=== PATIENT | male | born 1955 | race Caucasian/White ===

== ENCOUNTER 2018-07-29 11:21 | Inpatient (IN) | payer MEDICARE, OTHER ==
[~2018-07-29] VITALS: Ht 182.9 cm; Wt 90.3 kg
[2018-07-29] MEDS ORDERED: CLOP75TA15 PO (11:53)
[2018-07-29 12:03] LABS: BASOPHILS # (AUTO) 0.1 X10'3 (0-0.2); BASOPHILS % (AUTO) 0.9 % (0-1); EOSINOPHILS # (AUTO) 0.1 X10'3 (0-0.9); EOSINOPHILS % (AUTO) 1.2 % (0-6); HEMATOCRIT 49.2 % (42.0-52.0); HEMOGLOBIN 17.3 g/dl (14.0-17.9); LYMPHOCYTES # (AUTO) 1.3 X10'3 (1.1-4.8); MEAN CORPUSCULAR HGB CONC 35.2 g/dL (33.0-36.5); MEAN CORPUSCULAR VOLUME 88.1 FL (78-98); MEAN PLATELET VOLUME 7.1 FL (7.4-10.4); MONOCYTES # (AUTO) 0.4 X10'3 (0-0.9); MONOCYTES % (AUTO) 5.3 % (2-12); NEUTROPHILS # (AUTO) 6.2 X10'3 (1.8-7.7); NEUTROPHILS % (AUTO) 76.6 % (42-75); PLATELET COUNT 235 X10'3 (140-440); RED BLOOD COUNT 5.59 X10'6 (4.70-6.10); RED CELL DISTRIBUTION WIDTH 13.5 % (11.5-14.5)
[2018-07-29 12:15] LABS: ALANINE AMINOTRANSFERASE 47 U/L (12-78); ALBUMIN 3.7 G/DL (3.4-5.0); ALBUMIN/GLOBULIN RATIO 0.7 (1.1-1.5); ALKALINE PHOSPHATASE 128 IU/L (46-116); ANION GAP 5 (8-16); ASPARTATE AMINO TRANSFERASE 26 U/L (10-37); BILIRUBIN,TOTAL 0.5 MG/DL (0.1-1.0); BLOOD UREA NITROGEN 16 MG/DL (7-18); BUN/CREATININE RATIO 13.7 (5.4-32.0); CALCIUM 9.2 MG/DL (8.5-10.1); CHLORIDE 102 MMOL/L (99-107); CREATININE 1.17 MG/DL (0.60-1.10); GLUCOSE 103 MG/DL (70-104); SODIUM 137 MMOL/L (135-145); TOTAL CARBON DIOXIDE 30.3 MMOL/L (24-32); TOTAL PROTEIN 8.7 G/DL (6.4-8.2); eGFR 63 ML/MIN
[2018-07-29 12:16] LABS: PARTIAL THROMBOPLASTIN TIME 28 SECONDS (22-32)
[2018-07-29] MEDS ORDERED: ASPI-1140 PO (12:41)
[2018-07-29] MEDS ORDERED: nitroGLYCERIN 0.4mg SUBLingual tab SL PRN (12:55)
[2018-07-29] MEDS ORDERED: magnesium hydroxide 30ml (MOM) UD suspension PO PRN (12:55)
[2018-07-29] MEDS ORDERED: bisacodyl 10mg suppository rectal RC PRN (12:55)
[2018-07-29] MEDS ORDERED: aminophylline 250mg/10ml inj. IV PRN (12:55)
[2018-07-29] MEDS ORDERED: potassium Cl 40MEQ/NS 500ml 500 ML IV PRN (12:55)
[2018-07-29] MEDS ORDERED: acetaminophen 325mg tablet PO PRN ×2 (12:55)
[2018-07-29] MEDS ORDERED: morphine 2 MG/ML inj. syringe IV PRN ×2 (12:55)
[2018-07-29] MEDS ORDERED: mag hydrox/Alum hydrox/simeth 30ml oral suspension PO PRN (12:55)
[2018-07-29] MEDS ORDERED: regadenoson 0.4mg/5ml syringe IV ONE (12:55)
[2018-07-29] MEDS ORDERED: HYDROcodone/acetaminophen 10/325mg tab PO PRN (12:55)
[2018-07-29] MEDS ORDERED: potassium Cl 20 mEq SR tablet PO PRN ×2 (12:55)
[2018-07-29] MEDS: K and/or MAG REPLACEMENT MC SCH (12:55)
[2018-07-29] MEDS ORDERED: potassium CL 10mEq/100ml bag 100 ML IV PRN (12:55)
[2018-07-29] MEDS ORDERED: metoprolol tartrate 1mg/ml inj IV PRN (12:55)
[2018-07-29] MEDS ORDERED: ondansetron/PF 4mg/2ml inj IV PRN (12:55)
[2018-07-29] MEDS ORDERED: magnesium 4gm in 100ml NS 100 ML IV PRN (12:55)
[2018-07-29] MEDS ORDERED: magnesium 2GM in 50ml NS 50 ML IV PRN (12:55)
[2018-07-29] MEDS ORDERED: magnesium Cl slow-release 64mg tablet PO PRN (12:55)
[2018-07-29] MEDS ORDERED: diphenhydrAMINE 25mg capsule PO PRN (12:55)
[2018-07-29] MEDS ORDERED: heparin 10,000 units/1 ML INJ IV ONE (13:00)
[2018-07-29 13:06] LABS: CLARITY,URINE CLEAR (Clear); COLOR,URINE YELLOW (Yellow); GLUCOSE, URINE NEGATIVE (Neg); KETONES,URINE NEGATIVE (Neg); LEUKOCYTE ESTERASE ,URINE NEGATIVE (Neg); NITRITES, URINE NEGATIVE (Neg); OCCULT BLOOD,URINE MODERATE (Neg); PH,URINE 5.5 (4.8-8.0); PROTEIN,URINE NEGATIVE (Neg); UROBILINOGEN,URINE 0.2 E.U/dL (0.2-1.0)
[2018-07-29 13:07] LABS: UA COLLECTION TYPE CLN CATCH MIDSTREAM
[2018-07-29] MEDS: normal saline 1000ml 1,000 ML IV SCH ×3 (13:13→23:00)
[2018-07-29 13:14] LABS: MUCUS STRANDS MANY /LPF (Neg); SQUAMOUS EPITHELIAL CELL,UR NONE SEEN /LPF (FEW)
[2018-07-29 13:15] LABS: HYALINE CASTS 0-3 /LPF (NEGATIVE)
[2018-07-29 13:16] LABS: WBC,URINE 0-4 /HPF (0-4)
[2018-07-29 13:17] LABS: BACTERIA,URINE NONE SEEN /HPF (Neg)
[2018-07-29] MEDS: heparin 25,000 UNIT/250ml bag 250 ML IV SCH ×2 (13:30→22:19)
--- NOTE | 2018-07-29 13:36 | NUR ---
GENE FROM [facility] STATES THEY WILL NOT BE ABLE TO DO THE STRESS TEST TODAY BUT WILL DO IT TOMORROW.
[2018-07-29 13:40] LABS: HEMOGLOBIN A1C 5.6 % (4.5-6.2)
[2018-07-29] MEDS ORDERED: pneumococcal 23-VAL P-sac vacc 25 mcg/0.5ml vial IMVAC ONE (14:00)
--- NOTE | 2018-07-29 15:29 | NUR ---
ECHO AT BEDSIDE
[2018-07-29 16:40] LABS: URINE AMPHETAMINE SCREEN NEGATIVE (Neg); URINE BARBITUATE SCREEN NEGATIVE (Neg); URINE BENZODIAZEPINES SCREEN NEGATIVE (Neg); URINE CANNABINOID SCREEN POSITIVE (Neg); URINE COCAINE SCREEN NEGATIVE (Neg); URINE METHADONE SCREEN NEGATIVE (Neg); URINE OPIATE SCREEN NEGATIVE (Neg); URINE PHENCYCLIDINE SCREEN NEGATIVE (Neg)
--- NOTE | 2018-07-29 16:40 | NUR ---
TIMOTHY ROSARIO PHONE NUMBER (QVUT) [phone] CALL WITH ANY QUESTIONS OR NEW INFO.
--- NOTE | 2018-07-29 16:52 | NUR ---
Report received from ED RN, Nicci.
[2018-07-29] MEDS: amLODIPine 5mg tablet PO SCH (16:56)
--- NOTE | 2018-07-29 17:20 | NUR ---
Pt arrived to room 349A from ED
[2018-07-29 17:25] VITALS: BP 173/123
--- NOTE | 2018-07-29 18:50 | NUR ---
Problems reprioritized. Patient report given, questions answered & plan of care reviewed with IRMA Edouard.
--- NOTE | 2018-07-29 19:21 | NUR ---
Patient in room LAST 349. I have received report from Brittanie SOLIS and had the opportunity to ask questions and assume patient care.
[2018-07-29 20:00] VITALS: BP 143/86
[2018-07-29 20:44] LABS: PARTIAL THROMBOPLASTIN TIME 27 SECONDS (22-32)
[2018-07-29] MEDS ORDERED: temazepam 15mg capsule PO PRN (21:00)
[2018-07-29] MEDS: heparin 10,000 units/1 ML INJ IV PRN (22:16)
[2018-07-30] VITALS (18 sets, daily range): BP systolic 132–155; BP diastolic 73–102
[2018-07-30 04:47] LABS: BASOPHILS # (AUTO) 0.1 X10'3 (0-0.2); BASOPHILS % (AUTO) 0.8 % (0-1); EOSINOPHILS # (AUTO) 0.2 X10'3 (0-0.9); EOSINOPHILS % (AUTO) 2.7 % (0-6); HEMATOCRIT 44.1 % (42.0-52.0); HEMOGLOBIN 15.5 g/dl (14.0-17.9); LYMPHOCYTES # (AUTO) 1.7 X10'3 (1.1-4.8); MEAN CORPUSCULAR HGB CONC 35.1 g/dL (33.0-36.5); MEAN CORPUSCULAR VOLUME 88.2 FL (78-98); MEAN PLATELET VOLUME 7.2 FL (7.4-10.4); MONOCYTES # (AUTO) 0.5 X10'3 (0-0.9); MONOCYTES % (AUTO) 6.8 % (2-12); NEUTROPHILS # (AUTO) 4.9 X10'3 (1.8-7.7); NEUTROPHILS % (AUTO) 66.7 % (42-75); PLATELET COUNT 184 X10'3 (140-440); RED CELL DISTRIBUTION WIDTH 13.7 % (11.5-14.5); WHITE BLOOD COUNT 7.3 X10'3 (4.5-11.0)
[2018-07-30 05:07] LABS: ALANINE AMINOTRANSFERASE 45 U/L (12-78); ALBUMIN 2.9 G/DL (3.4-5.0); ALBUMIN/GLOBULIN RATIO 0.7 (1.1-1.5); ALKALINE PHOSPHATASE 103 IU/L (46-116); ANION GAP 6 (8-16); ASPARTATE AMINO TRANSFERASE 27 U/L (10-37); BILIRUBIN,TOTAL 0.7 MG/DL (0.1-1.0); BLOOD UREA NITROGEN 14 MG/DL (7-18); BUN/CREATININE RATIO 13.9 (5.4-32.0); CALCIUM 8.2 MG/DL (8.5-10.1); CHLORIDE 106 MMOL/L (99-107); CHOLESTEROL 136 MG/DL (0-200); CREATININE 1.01 MG/DL (0.60-1.10); GLUCOSE 84 MG/DL (70-104); HDL CHOLESTEROL 27 MG/DL (35-60); LDL CHOLESTEROL 96 MG/DL (50-100); MAGNESIUM 1.7 MG/DL (1.5-2.4); PHOSPHORUS 2.8 MG/DL (2.3-4.5); POTASSIUM 3.9 MMOL/L (3.5-5.1); SODIUM 137 MMOL/L (135-145); TOTAL CARBON DIOXIDE 24.9 MMOL/L (24-32); TRIGLYCERIDES 132 MG/DL (20-135); eGFR 74 ML/MIN
[2018-07-30] MEDS: heparin 10,000 units/1 ML INJ IV PRN ×2 (05:25→12:35)
[2018-07-30] MEDS: heparin 25,000 UNIT/250ml bag 250 ML IV SCH (05:29)
--- NOTE | 2018-07-30 06:44 | NUR ---
Problems reprioritized. Patient report given, questions answered & plan of care reviewed with Charo SOILS.
--- NOTE | 2018-07-30 07:44 | NUR ---
Spoke with RN completing Lexiscan. She recommends holding Amlodipine for Lexiscan. Will hold at this time and discuss/clarify with MD during rounds.
[2018-07-30] MEDS: K and/or MAG REPLACEMENT MC SCH (07:46)
[2018-07-30] MEDS ORDERED: aminophylline inj. 10 ML IV ONE (09:37)
[2018-07-30] MEDS ORDERED: regadenoson 0.4mg/5ml syringe IV ONE (09:37)
[2018-07-30] MEDS ORDERED: iohexol 300mg/ml 100ml inj. ONE (09:49)
[2018-07-30] MEDS ORDERED: LIDOcaine 1%/PF 5ML 10 MG/ML VIAL ONE (09:49)
[2018-07-30] MEDS ORDERED: fentaNYL/PF 50MCG/1 ML 2ML syringe IV PRN ×2 (10:20→13:20)
[2018-07-30] MEDS ORDERED: midazolam 2 mg/2 ml injection IV PRN ×2 (10:20→13:20)
[2018-07-30] MEDS ORDERED: LIDOcaine 1%/PF 5ML 10 MG/ML VIAL SQ ONE ×2 (10:20→13:20)
[2018-07-30] MEDS ORDERED: heparin 1,000 UNITS/NS 500ml 500 ML ICATH ONE ×2 (10:20→13:20)
[2018-07-30] MEDS: amLODIPine 5mg tablet PO SCH (11:39)
--- NOTE | 2018-07-30 13:13 | NUR ---
PAGER ID: [phone] MESSAGE: [id number] Jason Montoya Did you want the serial trops you mentioned in your H&P? I can't find any in the orders. Charo SOLIS [phone]
[2018-07-30] MEDS ORDERED: normal saline 1000ml 1,000 ML IV SCH (13:18)
[2018-07-30] MEDS ORDERED: midazolam 2 mg/2 ml injection ONE (13:47)
[2018-07-30] MEDS ORDERED: fentaNYL/PF 50MCG/1 ML 2ML syringe ONE ×2 (13:47→14:30)
[2018-07-30] MEDS ORDERED: heparin 1,000 UNITS/NS 500ml 500 ML ONE (13:47)
--- NOTE | 2018-07-30 14:20 | NUR ---
Attempted to clarify when Troponin would need to be drawn or if that gets completed in IR or not. Spoke to Glenn SOLIS who told me "I got to go." and hung up. Will attempt to clarify at a later time.
[2018-07-30] MEDS: normal saline 1000ml 1,000 ML IV SCH (15:49)
--- NOTE | 2018-07-30 18:48 | NUR ---
Gave report to Silke SOLIS.
--- NOTE | 2018-07-30 18:50 | NUR ---
Patient in room LAST 349. I have received report from Charo SOLIS and had the opportunity to ask questions and assume patient care. Pt sitting up in bed just finishing dinner. Heparin is currently shut off pending the 7pm lab draw results. NS running ay 75. Pt has no signs of distress, no active bleeding. Will continue to monitor.
[2018-07-31] VITALS: BP 113/56
[2018-07-31 03:04] LABS: BASOPHILS # (AUTO) 0.1 X10'3 (0-0.2); BASOPHILS % (AUTO) 1.1 % (0-1); EOSINOPHILS # (AUTO) 0.2 X10'3 (0-0.9); EOSINOPHILS % (AUTO) 2.5 % (0-6); HEMATOCRIT 45.1 % (42.0-52.0); HEMOGLOBIN 15.9 g/dl (14.0-17.9); LYMPHOCYTES # (AUTO) 1.4 X10'3 (1.1-4.8); LYMPHOCYTES % (AUTO) 19.1 % (21-51); MEAN CORPUSCULAR HGB CONC 35.4 g/dL (33.0-36.5); MEAN CORPUSCULAR VOLUME 87.8 FL (78-98); MEAN PLATELET VOLUME 7.5 FL (7.4-10.4); MONOCYTES # (AUTO) 0.6 X10'3 (0-0.9); MONOCYTES % (AUTO) 7.8 % (2-12); NEUTROPHILS # (AUTO) 5.1 X10'3 (1.8-7.7); NEUTROPHILS % (AUTO) 69.5 % (42-75); PLATELET COUNT 205 X10'3 (140-440); RED BLOOD COUNT 5.14 X10'6 (4.70-6.10); RED CELL DISTRIBUTION WIDTH 13.6 % (11.5-14.5); WHITE BLOOD COUNT 7.3 X10'3 (4.5-11.0)
[2018-07-31 03:11] LABS: ALANINE AMINOTRANSFERASE 46 U/L (12-78); ALBUMIN 3.2 G/DL (3.4-5.0); ALBUMIN/GLOBULIN RATIO 0.7 (1.1-1.5); ALKALINE PHOSPHATASE 116 IU/L (46-116); ANION GAP 8 (8-16); ASPARTATE AMINO TRANSFERASE 27 U/L (10-37); BLOOD UREA NITROGEN 14 MG/DL (7-18); BUN/CREATININE RATIO 13.9 (5.4-32.0); CALCIUM 8.8 MG/DL (8.5-10.1); CHLORIDE 103 MMOL/L (99-107); CREATININE 1.01 MG/DL (0.60-1.10); GLUCOSE 90 MG/DL (70-104); MAGNESIUM 1.6 MG/DL (1.5-2.4); POTASSIUM 3.4 MMOL/L (3.5-5.1); SODIUM 135 MMOL/L (135-145); TOTAL CARBON DIOXIDE 24.4 MMOL/L (24-32); TOTAL PROTEIN 7.6 G/DL (6.4-8.2); eGFR 74 ML/MIN
[2018-07-31] MEDS: heparin 10,000 units/1 ML INJ IV PRN (03:51)
[2018-07-31] MEDS: heparin 25,000 UNIT/250ml bag 250 ML IV SCH (03:56)
[2018-07-31] MEDS: normal saline 1000ml 1,000 ML IV SCH ×2 (04:16→13:11)
--- NOTE | 2018-07-31 06:47 | NUR ---
Problems reprioritized. Patient report given, questions answered & plan of care reviewed with Gabriella SOLIS.
[2018-07-31 07:25] VITALS: BP 113/66
[2018-07-31] MEDS: amLODIPine 5mg tablet PO SCH (07:53)
[2018-07-31] MEDS: K and/or MAG REPLACEMENT MC SCH (08:00)
[2018-07-31 11:00] VITALS: BP 135/85
[2018-07-31] MEDS ORDERED: heparin 10,000 units/1 ML INJ ONE (14:08)
[2018-07-31] MEDS ORDERED: ceFAZolin 1000mg inj ONE (14:09)
--- NOTE | 2018-07-31 15:15 | NUR ---
Patient refusing potassium IV replacement. NPO at the time. will notify
[2018-07-31] MEDS ORDERED: LIDOcaine 1% (10mg/ml) 2ml vial ONE (15:21)
--- NOTE | 2018-07-31 16:42 | NUR ---
Called report to IRMA Joaquin in recovery room.
[2018-07-31] MEDS ORDERED: midazolam 2 mg/2 ml injection ONE (17:30)
[2018-07-31] MEDS ORDERED: fentaNYL /PF 50mcg/ml 5ml ampule ONE (17:31)
[2018-07-31] MEDS ORDERED: LIDOcaine 2% (20mg/ml) 5ml vial ONE ×2 (17:32→17:36)
[2018-07-31] MEDS ORDERED: propofol inj 20 ML IV ONE ×2 (17:32→17:36)
[2018-07-31] MEDS ORDERED: rocuronium 10mg/ml inj IV ONE (17:32)
--- NOTE | 2018-07-31 18:34 | NUR ---
Problems reprioritized. Patient report given, questions answered & plan of care reviewed with IRMA Aguayo and IRMA Gandhi.
[2018-07-31] MEDS ORDERED: phenylephrine 10mg/ml inj. ONE (20:56)
[2018-07-31] MEDS ORDERED: heparin 1,000unit/ml 10ml vial 10 ML ONE (20:56)
[2018-07-31] MEDS ORDERED: ondansetron/PF 4mg/2ml inj ONE (20:56)
[2018-07-31] MEDS ORDERED: dexamethasone sod phosphate 4mg/ml inj. ONE (20:56)
[2018-07-31] MEDS ORDERED: iohexol 300 MG/1 ML 50ml polymer ONE ×2 (21:04→21:40)
--- NOTE | 2018-07-31 21:55 | NUR ---
I have received report from Melva SOLIS, and had the opportunity to ask questions and assume patient care. Awaiting PT arrival to Unit
[2018-07-31] MEDS ORDERED: meperidine/PF 50mg/ml syringe ONE (22:04)
[2018-07-31] MEDS ORDERED: HYDROcodone/acetaminophen 10/325mg tab PO PRN (22:10)
[2018-07-31 22:28] LABS: PARTIAL THROMBOPLASTIN TIME > 153 SECONDS (22-32)
--- NOTE | 2018-07-31 22:30 | NUR ---
PT arrived to unit via ICU bed from Recovery, PT is receiving 10L O2 to simple mask, will titrate down as PT tolerates. PT is awake and alert. PT placed on bedside monitor. VSS. PT has Prevena to LT groin, CDI. PT has island drsg to LT medial calf. CDI. Palpable Dorsalis pedis as well as Post tibial pulse, Doppler pulses present on LT. PT has A-Line to RT radial and CVL to RT-IJ, lines transduced to pressure tubing and have been zeroed. Bed is locked and low. Call light is within reach. Will continue to monitor.
[2018-07-31 23:00] VITALS: BP 155/79
[2018-07-31] MEDS: HYDROmorphone 1 mg/ml syringe IV PRN (23:05)
[2018-07-31 23:22] LABS: BASOPHILS % (AUTO) 0.4 % (0-1); EOSINOPHILS % (AUTO) 0.3 % (0-6); HEMATOCRIT 42.7 % (42.0-52.0); HEMOGLOBIN 14.5 g/dl (14.0-17.9); LYMPHOCYTES # (AUTO) 0.7 X10'3 (1.1-4.8); LYMPHOCYTES % (AUTO) 6.1 % (21-51); MEAN CORPUSCULAR HEMOGLOBIN 30.2 PG (27.0-31.0); MEAN CORPUSCULAR HGB CONC 33.9 g/dL (33.0-36.5); MEAN CORPUSCULAR VOLUME 89.2 FL (78-98); MEAN PLATELET VOLUME 7.6 FL (7.4-10.4); MONOCYTES # (AUTO) 0.1 X10'3 (0-0.9); MONOCYTES % (AUTO) 1.3 % (2-12); NEUTROPHILS # (AUTO) 10.2 X10'3 (1.8-7.7); NEUTROPHILS % (AUTO) 91.9 % (42-75); PLATELET COUNT 193 X10'3 (140-440); RED BLOOD COUNT 4.79 X10'6 (4.70-6.10); RED CELL DISTRIBUTION WIDTH 13.6 % (11.5-14.5); WHITE BLOOD COUNT 11.2 X10'3 (4.5-11.0)
[2018-07-31 23:30] LABS: ALANINE AMINOTRANSFERASE 38 U/L (12-78); ALBUMIN 2.8 G/DL (3.4-5.0); ALBUMIN/GLOBULIN RATIO 0.7 (1.1-1.5); ALKALINE PHOSPHATASE 106 IU/L (46-116); ANION GAP 8 (8-16); ASPARTATE AMINO TRANSFERASE 29 U/L (10-37); BILIRUBIN,TOTAL 1.1 MG/DL (0.1-1.0); BLOOD UREA NITROGEN 12 MG/DL (7-18); BUN/CREATININE RATIO 12.2 (5.4-32.0); CALCIUM 7.9 MG/DL (8.5-10.1); CHLORIDE 106 MMOL/L (99-107); CREATININE 0.98 MG/DL (0.60-1.10); GLUCOSE 106 MG/DL (70-104); MAGNESIUM 1.5 MG/DL (1.5-2.4); PHOSPHORUS 2.8 MG/DL (2.3-4.5); SODIUM 137 MMOL/L (135-145); TOTAL CARBON DIOXIDE 23.3 MMOL/L (24-32); TOTAL PROTEIN 6.6 G/DL (6.4-8.2); eGFR 77 ML/MIN
[2018-07-31 23:35] LABS: POTASSIUM 4.3 MMOL/L (3.5-5.1)
[2018-08-01] VITALS (18 sets, daily range): BP systolic 105–159; BP diastolic 60–86
[2018-08-01] MEDS ORDERED: ceFAZolin 1GM/D5W- ADD-VANTAGE 50 ML IV SCH
[2018-08-01] MEDS: ceFAZolin inj. 1,000 MG in dextrose 5%-water 50ml 50 ML IV SCH ×3 (01:26→16:01)
[2018-08-01] MEDS: potassium CL 20mEq in D5-1/2NS 1,000 ML IV SCH ×4 (01:26→17:57)
[2018-08-01] MEDS: HYDROmorphone 1 mg/ml syringe IV PRN (04:52)
[2018-08-01 05:58] LABS: BASOPHILS % (AUTO) 0.1 % (0-1); EOSINOPHILS % (AUTO) 0 % (0-6); HEMATOCRIT 40.4 % (42.0-52.0); HEMOGLOBIN 13.7 g/dl (14.0-17.9); LYMPHOCYTES # (AUTO) 0.5 X10'3 (1.1-4.8); LYMPHOCYTES % (AUTO) 4.9 % (21-51); MEAN CORPUSCULAR HEMOGLOBIN 30.3 PG (27.0-31.0); MEAN CORPUSCULAR VOLUME 89.1 FL (78-98); MEAN PLATELET VOLUME 7.5 FL (7.4-10.4); MONOCYTES # (AUTO) 0.4 X10'3 (0-0.9); MONOCYTES % (AUTO) 4.4 % (2-12); NEUTROPHILS # (AUTO) 8.5 X10'3 (1.8-7.7); NEUTROPHILS % (AUTO) 90.6 % (42-75); PLATELET COUNT 179 X10'3 (140-440); RED BLOOD COUNT 4.53 X10'6 (4.70-6.10); RED CELL DISTRIBUTION WIDTH 13.6 % (11.5-14.5); WHITE BLOOD COUNT 9.4 X10'3 (4.5-11.0)
--- NOTE | 2018-08-01 06:00 | NUR ---
Patient in room ICU 2043. I have received report from IRMA Seaman and had the opportunity to ask questions and assume patient care. Addendum: 08/01/18 at 0658 by Elizabeth Louise RN Amended: Links added.
[2018-08-01 06:11] LABS: ALANINE AMINOTRANSFERASE 37 U/L (12-78); ALBUMIN 2.6 G/DL (3.4-5.0); ALBUMIN/GLOBULIN RATIO 0.7 (1.1-1.5); ALKALINE PHOSPHATASE 96 IU/L (46-116); ANION GAP 8 (8-16); ASPARTATE AMINO TRANSFERASE 24 U/L (10-37); BILIRUBIN,TOTAL 0.7 MG/DL (0.1-1.0); BLOOD UREA NITROGEN 12 MG/DL (7-18); BUN/CREATININE RATIO 13.3 (5.4-32.0); CALCIUM 7.8 MG/DL (8.5-10.1); CHLORIDE 105 MMOL/L (99-107); GLUCOSE 155 MG/DL (70-104); MAGNESIUM 1.4 MG/DL (1.5-2.4); PHOSPHORUS 3.1 MG/DL (2.3-4.5); POTASSIUM 4.3 MMOL/L (3.5-5.1); SODIUM 136 MMOL/L (135-145); TOTAL CARBON DIOXIDE 23.4 MMOL/L (24-32); TOTAL PROTEIN 6.4 G/DL (6.4-8.2); eGFR 85 ML/MIN
--- NOTE | 2018-08-01 06:54 | NUR ---
Problems reprioritized. Patient report given, questions answered & plan of care reviewed with Elizabeth SOLIS.
[2018-08-01] MEDS: K and/or MAG REPLACEMENT MC SCH (08:00)
[2018-08-01] MEDS: clopidogrel 75mg tablet PO SCH (09:03)
[2018-08-01] MEDS: amLODIPine 5mg tablet PO SCH (09:03)
--- NOTE | 2018-08-01 14:33 | NUR ---
willard removed no problems and patient tolerated this well. Addendum: 08/01/18 at 1434 by Elizabeth Louise RN Amended: Links added.
[2018-08-01] MEDS ORDERED: magnesium Cl slow-release 64mg tablet PO ONE (15:50)
--- NOTE | 2018-08-01 15:57 | NUR ---
Patient in room ICU 2043. I have received report from Elizabeth SOLIS in ICU and had the opportunity to ask questions she will give patient mg and I will assume patient care when patient gets to the floor.
--- NOTE | 2018-08-01 16:34 | NUR ---
Patient arrived to the floor via gurney from ICU patient oriented to the room call light in place. Patient ambulated 300' with FWW.
--- NOTE | 2018-08-01 19:00 | NUR ---
Patient in room LAST 350. I have received report from Josefina SOLIS and had the opportunity to ask questions and assume patient care. Patient resting in bed, IV fluids infusing, in good spirits, ate 75% of meal, denies needs at this time. Will continue to monitor.
--- NOTE | 2018-08-01 19:00 | NUR ---
Problems reprioritized. Patient report given, questions answered & plan of care reviewed with Dede SOLIS.
[2018-08-01] MEDS: apixaban 5mg tablet PO SCH (19:16)
[2018-08-02] VITALS: BP 128/67
[2018-08-02] MEDS: potassium CL 20mEq in D5-1/2NS 1,000 ML IV SCH (01:39)
[2018-08-02 05:22] LABS: POTASSIUM 3.8 MMOL/L (3.5-5.1); SODIUM 135 MMOL/L (135-145); TOTAL CARBON DIOXIDE 23.3 MMOL/L (24-32)
[2018-08-02 05:25] LABS: BASOPHILS % (AUTO) 0.2 % (0-1); EOSINOPHILS # (AUTO) 0.1 X10'3 (0-0.9); EOSINOPHILS % (AUTO) 0.6 % (0-6); HEMATOCRIT 38.7 % (42.0-52.0); HEMOGLOBIN 13.5 g/dl (14.0-17.9); LYMPHOCYTES # (AUTO) 1.8 X10'3 (1.1-4.8); LYMPHOCYTES % (AUTO) 17.5 % (21-51); MEAN CORPUSCULAR HEMOGLOBIN 30.8 PG (27.0-31.0); MEAN CORPUSCULAR HGB CONC 34.8 g/dL (33.0-36.5); MEAN CORPUSCULAR VOLUME 88.3 FL (78-98); MEAN PLATELET VOLUME 7.5 FL (7.4-10.4); MONOCYTES # (AUTO) 0.8 X10'3 (0-0.9); MONOCYTES % (AUTO) 7.7 % (2-12); NEUTROPHILS # (AUTO) 7.8 X10'3 (1.8-7.7); PLATELET COUNT 167 X10'3 (140-440); RED BLOOD COUNT 4.38 X10'6 (4.70-6.10); RED CELL DISTRIBUTION WIDTH 13.6 % (11.5-14.5); WHITE BLOOD COUNT 10.5 X10'3 (4.5-11.0)
[2018-08-02 05:45] LABS: ALANINE AMINOTRANSFERASE 30 U/L (12-78); ALBUMIN 2.6 G/DL (3.4-5.0); ALBUMIN/GLOBULIN RATIO 0.7 (1.1-1.5); ALKALINE PHOSPHATASE 84 IU/L (46-116); ANION GAP 8 (8-16); ASPARTATE AMINO TRANSFERASE 20 U/L (10-37); BILIRUBIN,TOTAL 0.8 MG/DL (0.1-1.0); BLOOD UREA NITROGEN 11 MG/DL (7-18); BUN/CREATININE RATIO 11.7 (5.4-32.0); CHLORIDE 104 MMOL/L (99-107); CREATININE 0.94 MG/DL (0.60-1.10); GLUCOSE 113 MG/DL (70-104); MAGNESIUM 1.5 MG/DL (1.5-2.4); PHOSPHORUS 1.8 MG/DL (2.3-4.5); TOTAL PROTEIN 6.4 G/DL (6.4-8.2); eGFR 81 ML/MIN
--- NOTE | 2018-08-02 06:19 | NUR ---
Problems reprioritized. Patient report given, questions answered & plan of care reviewed with Jolnyn SOLIS. Patient is resting eyes closed respirations even.
--- NOTE | 2018-08-02 06:23 | NUR ---
Patient in room LAST 350. I have received report from Dede SOLIS and had the opportunity to ask questions and assume patient care.
[2018-08-02] MEDS: clopidogrel 75mg tablet PO SCH (07:17)
[2018-08-02] MEDS: amLODIPine 5mg tablet PO SCH (07:17)
[2018-08-02] MEDS: apixaban 5mg tablet PO SCH ×2 (07:17→20:02)
[2018-08-02] MEDS: K and/or MAG REPLACEMENT MC SCH (07:23)
[2018-08-02 07:28] VITALS: BP 122/73
[2018-08-02 11:00] VITALS: BP 98/57
[2018-08-02] MEDS: cefazolin/dext.iso 2gm/100ml 100 ML IV SCH (15:33)
--- NOTE | 2018-08-02 18:13 | NUR ---
patient was seen by Dr allen, sol to dopplar pulses Q shift. leg observed to be swollen, dr allen aware. Up to BR. Wound dressing to Left leg changed. niesha intact. Report given to Katia SOLIS
--- NOTE | 2018-08-02 18:23 | NUR ---
Patient in room LAST 350. I have received report from IRMA Neil and had the opportunity to ask questions and assume patient care. Addendum: 08/02/18 at 1823 by Precious Garcia RN Amended: Links added.
[2018-08-02 19:00] VITALS: BP 107/61
[2018-08-02] MEDS: HYDROcodone/acetaminophen 5mg/325mg tablet PO PRN (21:05)
[2018-08-03] VITALS: BP 109/65
[2018-08-03] MEDS: cefazolin/dext.iso 2gm/100ml 100 ML IV SCH ×3 (00:18→16:09)
[2018-08-03 05:30] LABS: ALANINE AMINOTRANSFERASE 29 U/L (12-78); ALBUMIN 2.6 G/DL (3.4-5.0); ALBUMIN/GLOBULIN RATIO 0.7 (1.1-1.5); ALKALINE PHOSPHATASE 84 IU/L (46-116); ANION GAP 3 (8-16); ASPARTATE AMINO TRANSFERASE 20 U/L (10-37); BILIRUBIN,TOTAL 0.9 MG/DL (0.1-1.0); BLOOD UREA NITROGEN 11 MG/DL (7-18); BUN/CREATININE RATIO 9.6 (5.4-32.0); CALCIUM 8.3 MG/DL (8.5-10.1); CHLORIDE 104 MMOL/L (99-107); CREATININE 1.15 MG/DL (0.60-1.10); GLUCOSE 102 MG/DL (70-104); MAGNESIUM 1.6 MG/DL (1.5-2.4); PHOSPHORUS 2.6 MG/DL (2.3-4.5); SODIUM 136 MMOL/L (135-145); TOTAL CARBON DIOXIDE 29.2 MMOL/L (24-32); TOTAL PROTEIN 6.6 G/DL (6.4-8.2); eGFR 64 ML/MIN
--- NOTE | 2018-08-03 06:20 | NUR ---
Problems reprioritized. Patient report given, questions answered & plan of care reviewed with IRMA Neil. Addendum: 08/03/18 at 0620 by Precious Garcia RN Amended: Links added.
--- NOTE | 2018-08-03 06:48 | NUR ---
Patient in room LAST 350. I have received report from Katia SOLIS and had the opportunity to ask questions and assume patient care.
[2018-08-03 07:00] VITALS: BP 117/65
[2018-08-03] MEDS: K and/or MAG REPLACEMENT MC SCH (07:34)
[2018-08-03] MEDS: amLODIPine 5mg tablet PO SCH (07:41)
[2018-08-03] MEDS: clopidogrel 75mg tablet PO SCH (07:42)
[2018-08-03] MEDS: apixaban 5mg tablet PO SCH ×2 (07:42→19:46)
[2018-08-03 10:13] LABS: BASOPHILS # (AUTO) 0.1 X10'3 (0-0.2); BASOPHILS % (AUTO) 0.8 % (0-1); EOSINOPHILS # (AUTO) 0.2 X10'3 (0-0.9); EOSINOPHILS % (AUTO) 1.5 % (0-6); HEMATOCRIT 40.6 % (42.0-52.0); HEMOGLOBIN 13.8 g/dl (14.0-17.9); LYMPHOCYTES # (AUTO) 1.8 X10'3 (1.1-4.8); LYMPHOCYTES % (AUTO) 17.2 % (21-51); MEAN CORPUSCULAR HEMOGLOBIN 30.7 PG (27.0-31.0); MEAN CORPUSCULAR HGB CONC 34.1 g/dL (33.0-36.5); MEAN PLATELET VOLUME 7.8 FL (7.4-10.4); MONOCYTES # (AUTO) 0.8 X10'3 (0-0.9); MONOCYTES % (AUTO) 7.5 % (2-12); NEUTROPHILS # (AUTO) 7.6 X10'3 (1.8-7.7); PLATELET COUNT 177 X10'3 (140-440); RED BLOOD COUNT 4.51 X10'6 (4.70-6.10); RED CELL DISTRIBUTION WIDTH 13.9 % (11.5-14.5); WHITE BLOOD COUNT 10.5 X10'3 (4.5-11.0)
[2018-08-03 11:00] VITALS: BP 110/69
--- NOTE | 2018-08-03 11:49 | NUR ---
Initial: Pt admit with PVD now s/p common femoral to peroneal bypass graft with common femoral arterial thrombectomy. Per WO notes pt with wound VAC to groin. Pt seen at bedside given written and verbal protein education with RD contact information. Pt endorses a low appetite stating that is normal for him despite documented 75-100% PO intake on regular diet. Pt reports he is making sure he eats the protein on his meal trays and denies additional protein at this time. Pt denies any food allergies, difficulty chewing/swallowing, or constipation/diarrhea. LBM 07/31. Pt denies prunes/prune juice/power pudding however requests coffee with lunch to help with BM, d/w dietary. Will continue to follow. Recommendations: 1) Continue with regular diet 2) Monitor need for ONS/additional protein 3) Monitor need for additional bowel care 4) Wt per rx Addendum: 08/03/18 at [address] Amended: Links added.
[2018-08-03] MEDS: HYDROcodone/acetaminophen 5mg/325mg tablet PO PRN (17:16)
[2018-08-03 18:00] VITALS: BP 106/67
--- NOTE | 2018-08-03 18:30 | NUR ---
Patient in room LAST 345. I have received report from IRMA Neil and had the opportunity to ask questions and assume patient care.
--- NOTE | 2018-08-03 18:44 | NUR ---
Patient seen by DR waterman, Leg is observed to be reddened and swollen, Dr Waterman aware. Dopplar pulse in left foot heard well. Dressing changed to left leg, small amount of serrous drainage. [place] intact. patient ambulated x3 in unit. pain relief given x1. report given to Martina SOLIS
[2018-08-04] VITALS: BP 121/69
[2018-08-04] MEDS: cefazolin/dext.iso 2gm/100ml 100 ML IV SCH ×3 (00:39→16:15)
--- NOTE | 2018-08-04 06:55 | NUR ---
Problems reprioritized. Patient report given, questions answered & plan of care reviewed with IRMA Mancilla.
[2018-08-04 07:00] VITALS: BP 111/63
[2018-08-04] MEDS: K and/or MAG REPLACEMENT MC SCH (08:00)
[2018-08-04] MEDS: apixaban 5mg tablet PO SCH ×2 (08:54→21:34)
[2018-08-04] MEDS: clopidogrel 75mg tablet PO SCH (08:55)
[2018-08-04] MEDS: HYDROcodone/acetaminophen 5mg/325mg tablet PO PRN ×2 (08:55→21:41)
[2018-08-04] MEDS: amLODIPine 5mg tablet PO SCH (08:55)
[2018-08-04] MEDS: magnesium hydroxide 30ml (MOM) UD suspension PO SCH ×2 (08:56→20:00)
[2018-08-04 11:42] VITALS: BP 117/78
[2018-08-04 18:40] VITALS: BP 113/64
--- NOTE | 2018-08-04 18:51 | NUR ---
Gave report to Nitin SOLIS.
[2018-08-05] MEDS: cefazolin/dext.iso 2gm/100ml 100 ML IV SCH ×2 (00:17→08:02)
--- NOTE | 2018-08-05 06:37 | NUR ---
Problems reprioritized. Patient report given, questions answered & plan of care reviewed with Thierry. Addendum: 08/05/18 at 0637 by Charlie Curtis RN Amended: Links added.
--- NOTE | 2018-08-05 06:49 | NUR ---
Patient in room LAST 350. I have received report from IRMA UMANA and had the opportunity to ask questions and assume patient care.
[2018-08-05 07:00] VITALS: BP 106/56
[2018-08-05] MEDS: magnesium hydroxide 30ml (MOM) UD suspension PO SCH (08:00)
[2018-08-05] MEDS: K and/or MAG REPLACEMENT MC SCH (08:00)
[2018-08-05] MEDS: apixaban 5mg tablet PO SCH (08:01)
[2018-08-05] MEDS: clopidogrel 75mg tablet PO SCH (08:02)
[2018-08-05] MEDS: amLODIPine 5mg tablet PO SCH (08:02)
[2018-08-05] MEDS ORDERED: HYDR-4383 PO (10:17)
[2018-08-05] MEDS ORDERED: APIX5TAB3 PO (10:17)
[2018-08-05] MEDS ORDERED: SULF1TAB49 PO (10:17)
--- NOTE | 2018-08-05 11:53 | NUR ---
Patient is A&O and in no apparent distress and with no complaints. Discussed with patient discharge, wound care and new prescription instructions and patient verbalizes understanding. Dressing change material given to patient. Prevena wound vac removed. Surgical incisions with niesha CDI. Border gauze to left calf and gauze with tegaderm to left groin cdi. Patient is ready for dc and awaiting for his spouse for transportation and also new prescriptions from [facility].
--- NOTE | 2018-08-05 12:28 | NUR ---
Patient received prescriptions from [facility]. Patient is now awaiting for spouse arrival from [place] for transport home.
[2018-08-05 12:46] VITALS: BP 105/58
--- NOTE | 2018-08-05 13:51 | NUR ---
Patient A&O with no complaints. DC'd with all personal belongings escorted out in wheelchair accompanied by x1 staff and spouse.
== END 2018-08-05 13:50 | disposition home or self-care (01) | DRG 254 ==
LOC: ER 11:22 → SUR 3N 17:08 → CMPBEDREQ 07-30 19:44 → PACU 07-31 17:04 → ICU 2S 07-31 22:30 → SUR 3N 08-01 16:37
PROVIDERS: ADMIT Family Medicine; ATTEND Surgery
PROC: 047D3DZ Dilation of Left Common Iliac Artery with Intraluminal Device, Percutaneous Approach (ICD-10-PCS; principal; 2018-07-30)
PROC: 4A02XM4 Measurement of Cardiac Total Activity, External Approach (ICD-10-PCS; 2018-07-30)
PROC: 3E033HZ Introduction of Radioactive Substance into Peripheral Vein, Percutaneous Approach (ICD-10-PCS; 2018-07-30)
PROC: B41G1ZZ Fluoroscopy of Left Lower Extremity Arteries using Low Osmolar Contrast (ICD-10-PCS; 2018-07-30)
PROC: B41C1ZZ Fluoroscopy of Pelvic Arteries using Low Osmolar Contrast (ICD-10-PCS; 2018-07-30)
PROC: B41F1ZZ Fluoroscopy of Right Lower Extremity Arteries using Low Osmolar Contrast (ICD-10-PCS; 2018-07-30)
PROC: 04CL0ZZ Extirpation of Matter from Left Femoral Artery, Open Approach (ICD-10-PCS; 2018-07-31)
PROC: 041L0JM Bypass Left Femoral Artery to Peroneal Artery with Synthetic Substitute, Open Approach (ICD-10-PCS; 2018-07-31)
PROC: 041L09M Bypass Left Femoral Artery to Peroneal Artery with Autologous Venous Tissue, Open Approach (ICD-10-PCS; 2018-07-31)
PROC: 06BQ0ZZ Excision of Left Saphenous Vein, Open Approach (ICD-10-PCS; 2018-07-31)
PROC: 06BP0ZZ Excision of Right Saphenous Vein, Open Approach (ICD-10-PCS; 2018-07-31)
DX: I70.212 Atherosclerosis of native arteries of extremities with intermittent claudication, left leg (principal); F12.10 Cannabis abuse, uncomplicated; F17.210 Nicotine dependence, cigarettes, uncomplicated; I10 Essential (primary) hypertension; D64.9 Anemia, unspecified; B19.20 Unspecified viral hepatitis C without hepatic coma; Z71.6 Tobacco abuse counseling; Z85.828 Personal history of other malignant neoplasm of skin
CPT/HCPCS: 36415; 37221; 71045; 73590; 76000; 78452; 80053; 80061; 80305; 81001; 83036; 83735; 84100; 84484; 85025; 85610; 85730; 86885; 86900; 86901; 86920; 87070; 88304; 90732; 93005; 93017; 93306; 93971; 96374; 97116; 97161; 99152; 99153; 99285; A6219; A6255; A6258; A6454; A7000; A9500; C1758; C1760; C1769; C1781; C1876; C1894; G0378; J0280; J0690; J1100; J1170; J1644; J2001; J2175; J2250; J2370; J2405; J2704; J3010; J3480; J3490; J7030; J7060; J7120; Q9967

== ENCOUNTER 2021-07-12 10:41 | Day surgery (SDC) | payer MEDICARE, OTHER ==
[~2021-07-12] VITALS: Ht 182.9 cm; Wt 95.4 kg
[~2021-07-12 10:41] MED LIST: APIX5TAB3 PO; ASPI-1140 PO; CLOP75TA15 PO; HYDR-4383 PO
[2021-07-12] MEDS ORDERED: LISI20TA28 PO (11:08)
[2021-07-12] MEDS ORDERED: OMEP20CA15 PO (11:08)
[2021-07-12] MEDS ORDERED: CARV3.123 PO (11:08)
[2021-07-12] MEDS ORDERED: APIX5TAB3 PO (11:08)
[2021-07-12] MEDS ORDERED: ATOR40TA72 PO (11:08)
[2021-07-12 11:15] VITALS: BP_SYST 115; BP_SYST 155; BP_DIAS 89; BP_DIAS 98
[2021-07-12] MEDS ORDERED: MIDAZolam 1mg/ml 10ml vial IV ONE (11:40)
[2021-07-12] MEDS ORDERED: fentaNYL/PF 50MCG/1 ML 2ML syringe IV ONE (11:40)
[2021-07-12] MEDS ORDERED: normal saline 1000ml 1,000 ML IV SCH (11:40)
--- NOTE | 2021-07-12 12:30 | NUR ---
Dr. Alisha Parra here changed procedure form CARA to ECHO with contrast. Updated pt and family. Awaiting sterile proc tech to do procedure.
[2021-07-12] MEDS ORDERED: PERFLUTREN PROTEIN-A MICROSPHR (Optison) 0.22 MG/ML 3ML VIAL IV ONE (13:40)
[2021-07-12 14:00] VITALS: BP 155/89
--- NOTE | 2021-07-12 14:00 | NUR ---
Meli digital controls technical officer here, ECHO in progress.
[2021-07-12 14:13] VITALS: BP 163/76
[2021-07-12 14:30] VITALS: BP 149/79
[2021-07-12 14:40] VITALS: BP 156/80
--- NOTE | 2021-07-12 14:40 | NUR ---
Written and verbal DC instructions given to pt and , both verbalize understanding. PIV DC cath intact, VSS, Denies pain. Pt able to dress self, steady on feet. Pt amb to private car gait steady.
== END 2021-07-12 14:40 | disposition home or self-care (01) ==
LOC: SSTAY O 10:41
PROVIDERS: ATTEND Student in an Organized Health Care Education/Training Program
DX: I24.0 Acute coronary thrombosis not resulting in myocardial infarction (principal); I25.10 Atherosclerotic heart disease of native coronary artery without angina pectoris; I11.0 Hypertensive heart disease with heart failure; I50.22 Chronic systolic (congestive) heart failure; E78.5 Hyperlipidemia, unspecified; I70.213 Atherosclerosis of native arteries of extremities with intermittent claudication, bilateral legs; Z79.01 Long term (current) use of anticoagulants; Z79.899 Other long term (current) drug therapy; Z98.890 Other specified postprocedural states
CPT/HCPCS: 93308; Q9956

== ENCOUNTER 2021-09-20 12:29 | Outpatient (CLI) | payer MEDICARE, OTHER ==
[~2021-09-20 12:29] MED LIST changes: -ASPI-1140 PO; +ATOR40TA72 PO; +CARV3.123 PO; -HYDR-4383 PO; +LISI20TA28 PO; +OMEP20CA15 PO
[2021-09-20] MEDS ORDERED: PERFLUTREN PROTEIN-A MICROSPHR (Optison) 0.22 MG/ML 3ML VIAL IV ONE (13:00)
== END 2021-09-20 23:59 | disposition home or self-care (01) ==
LOC: RAD 12:29
PROVIDERS: ATTEND Internal Medicine Interventional Cardiology
DX: I21.9 Acute myocardial infarction, unspecified (principal); I50.22 Chronic systolic (congestive) heart failure; Z86.718 Personal history of other venous thrombosis and embolism
CPT/HCPCS: 93308; Q9956

== ENCOUNTER 2023-03-09 10:35 | Outpatient (CLI) | payer MEDICARE, OTHER ==
[2023-03-09 11:07] LABS: ALBUMIN 3.5 G/DL (3.4-5.0); ANION GAP 6 (8-16); BLOOD UREA NITROGEN 18 MG/DL (7-18); BUN/CREATININE RATIO 12.9 (10.0-20.0); CHLORIDE 103 MMOL/L (99-107); GLUCOSE 103 MG/DL (70-104); POTASSIUM 4.6 MMOL/L (3.5-5.1); SODIUM 135 MMOL/L (135-145); TOTAL CARBON DIOXIDE 26.4 MMOL/L (24-32); eGFR 50 ML/MIN
[2023-03-09] MEDS ORDERED: iohexol 350 MG/ML 50ML vial IV ONE (11:14)
[2023-03-09] MEDS ORDERED: iohexol 350MG/ML 100ml bottle IV ONE (11:14)
== END 2023-03-09 23:59 | disposition home or self-care (01) ==
LOC: RAD 10:35
PROVIDERS: ATTEND Internal Medicine Interventional Cardiology
DX: I70.213 Atherosclerosis of native arteries of extremities with intermittent claudication, bilateral legs (principal); N28.1 Cyst of kidney, acquired; I50.22 Chronic systolic (congestive) heart failure; E78.5 Hyperlipidemia, unspecified; J98.11 Atelectasis; I71.9 Aortic aneurysm of unspecified site, without rupture; K40.90 Unilateral inguinal hernia, without obstruction or gangrene, not specified as recurrent; N40.0 Benign prostatic hyperplasia without lower urinary tract symptoms; K57.30 Diverticulosis of large intestine without perforation or abscess without bleeding
CPT/HCPCS: 36415; 75635; 80048; J3490; Q9967

== ENCOUNTER 2024-11-24 18:18 | Inpatient (IN) | payer MEDICARE, OTHER ==
[~2024-11-24] VITALS: Ht 182.9 cm; Wt 84.9 kg
--- NOTE | 2024-11-24 18:37 | ELECTROCARDIOGRAPH REPORT ---
[facility] Test Date: 2024-11-24 Test Time: 18:34:13 Pat Name: RAJESH ROSARIO Department: [facility] Patient ID: [facility]-[id number] Room: Gender: M Review Engineer: : [id number] Requested By: SHAUNA SPEARS Order Number: [id number] Reading MD: Measurements Intervals [place] Rate: 79 P: 57 VT: 150 QRS: 53 QRSD: 89 T: 68 QT: 371 QTc: 426 Interpretive Statements Sinus rhythm Please click the below link to view image of tracing.
--- NOTE | 2024-11-24 18:53 | RADIOLOGY REPORT ---
CLINICAL HISTORY: Stroke Alert TECHNIQUE: Single view of the chest was obtained. COMPARISON: CHEST,SINGLE VIEW on DOS: 08/01/18, CHEST,SINGLE VIEW on DOS: 07/29/18 FINDINGS: The heart is mildly enlarged with pulmonary vascular congestion. There are right basilar opacities. IMPRESSION: Pulmonary vascular congestion. Right basilar opacities, favor atelectasis/small pleural effusion.
[2024-11-24 19:15] LABS: CREATININE 1.78 MG/DL (0.60-1.10); TOTAL CARBON DIOXIDE 23.1 MMOL/L (24-32); eCRCL 42 ML/MIN; eGFR 38 ML/MIN
[2024-11-24 19:18] LABS: APTT 28 SECONDS (22-32); INR 1.3 INR
[2024-11-24 19:25] LABS: MEAN PLATELET VOLUME 8.7 FL (7.4-10.4); RED CELL DISTRIBUTION WIDTH 17.8 % (11.5-14.5)
--- NOTE | 2024-11-24 20:14 | Physician Documentation ---
History of Present Illness ~ Chief Complaint: Edema Stated Complaint: TRANSFER Time Seen by MD: 18:39 HPI Patient was transferred from [facility] and we have reveal for acute arterial occlusion of the left lower extremity. He has had a femoral popliteal bypass in the past. He said that has about three years ago. He had he was admitted to [facility] [place] and was diagnosed with a metastatic lung cancer. He said that he was discharged two days ago. On the last day he started to notice little bit of discoloration to the dorsum of the left forefoot and toes. He said that blue discoloration has worsened. He has also been short of breath for a few days. Denies chest pain. He is on Eliquis. He has not noticed any blood in his stool or hematochezia but he is not sure. His left foot is not painful. Medication Reconciliation Allergies: Coded Allergies: No Known Allergies (Unverified , 07/29/18) Scheduled Apixaban (Eliquis), 1 TAB PO Q12H, (Reported) Atorvastatin Calcium (Atorvastatin Calcium), 1 TAB PO DAILY, (Reported) Carvedilol (Carvedilol), 1 TAB PO BID, (Reported) Clopidogrel Bisulfate (Plavix), 75 MG PO DAILY, (Reported) Lisinopril (Lisinopril), 0.5 TAB PO DAILY, (Reported) Omeprazole (Omeprazole), 1 CAP PO DAILY, (Reported) Past Medical History Other Past Surgical History: hernia repair Alcohol Use: None Drug Use: marijuana Physical Exam Vital Signs: Temperature: 97.6, Source: Oral, Heart Rate: 83, Respiratory Rate: 22, BP: 108/58, Pulse Oximetry: 94, Weight: 90.000 Oxygen Flow Rate: 4.0 General Appearance General: Awake and Alert, no acute distress. HEENT: Conjunctiva pink, Sclera clear, Mucus Membranes moist. Neck: Supple without masses and tenderness. Resp: Unlabored. Scattered rales. Heart: Regular Rate and rhythm, normal S1 and S2 without murmur, rub or gallop. Abdomen: Soft and non tender no organomegaly Rectal: No melena or gross blood but was heme-positive. Female nurse sales and merchandising representative present for the exam. Extremities: He has bilateral lower extremity edema. The left is greater than the right significantly. There is a blue discoloration the dorsum of the distal left forefoot and his toes there is a blister proximal to the great toe. Skin: Warm and Dry. Neuro: GCS 15; no focal deficits Progress Results/Orders Results/Orders Orders - BONILLA HAWKINS MD Vl Venous (11/24/24 19:48) Lrpc - Active Bleeding (11/24/24 20:06) Type And Screen (11/24/24 20:06) Transfusion Informed Consent (11/24/24 20:06) Vl Arterial (11/24/24 ) Vl Mary (11/24/24 ) Pantoprazole 40mg Iv (Protonix 40mg Iv) (11/24/24 20:55) Vital Signs 11/24/24 11/24/24 11/24/24 18:24 20:19 20:47 Temp 97.6 97.6 Pulse 83 87 Resp 22 16 21 B/P (MAP) 108/58 141/72 (95) Pulse Ox 94 100 O2 Flow Rate 4.0 4.0 Laboratory Tests Test 11/24/24 18:52 White Blood Count 5.8 Red Blood Count 2.67 L Hemoglobin 7.3 L Hematocrit 22.3 L Mean Corpuscular Volume 83.5 Mean Corpuscular Hemoglobin 27.3 Mean Corpuscular Hemoglobin Concent 32.7 L Red Cell Distribution Width 17.8 H Platelet Count 36 *L Mean Platelet Volume 8.7 Neutrophils (%) (Auto) 73.4 Lymphocytes (%) (Auto) 12.7 L Monocytes (%) (Auto) 9.8 Eosinophils (%) (Auto) 3.2 Basophils (%) (Auto) 0.9 Neutrophils # (Auto) 4.2 Lymphocytes # (Auto) 0.7 L Monocytes # (Auto) 0.6 Eosinophils # (Auto) 0.2 Basophils # (Auto) 0.0 CBC Comment Prothrombin Time 13.1 H INR International Normalized Ratio 1.3 Activated Partial Thromboplast Time 28 Coagulation Comments Sodium Level 142 Potassium Level 4.8 Chloride Level 110 H Carbon Dioxide Level 23.1 L Anion Gap 9 Blood Urea Nitrogen 51 H Creatinine 1.78 H Estimated GFR/1.73 m2 38 BUN/Creatinine Ratio 28.7 H Glucose Level 94 Calcium Level 8.4 L Albumin 2.5 L Chemistry Comments Medical Decision Making Findings EKG as interpreted by me shows a sinus rhythm at 79 beats per minute axis intervals ST segments are unremarkable. Patient is here for concern for acute arterial occlusion. He does not have pain he has just noticed some blue discoloration to the left foot. He was seen in the emergency department and [place] well. Dr. Waterman was consulted and the patient was transferred here. Repeated his labs with hemoglobin 7.3 his platelet count is 37. Ordered a unit of PRBCs and platelets. His basic metabolic panel shows renal insufficiency likely prerenal. Dr. Waterman had asked for a venous Doppler ultrasound of the left leg. There was no report. Are cleared tried to call and get a verbal report but was told it was an inconclusive exam so I ordered a ultrasound here. Plan is for the patient to be admitted to the hospital. During his vascular ultrasound there is some arterial flow posterior lead to the foot. Said that has acute on chronic arterial occlusion. He had initially been started on heparin at [facility]. Since he has heme-positive stools in his anemic I did not restart the heparin. He is given IV Protonix. Dr. Waterman came to the ED to see the patient. This patient had a high probability of sudden, clinically significant deterioration, which required the highest level of physician preparedness to intervene urgently. The patient required and I delivered critical care from time of arrival until disposition. Critical care time was separate from procedural such as intubation or central line placement or cardioversion. Critical care included initial assessment of the seriously ill patient, initiation of diagnostic studies and treatment, management of life-threatening and/or end organ supporting interventions that required frequent physician assessment, and phone consultation with other providers as outlined in the progress notes. Spent with family or surrogates is included only if the patient was not capable of providing the necessary information or participating in medical decision-making. Total critical care time: 35 minutes Departure Disposition: ADMITTED INPATIENT Impression: Primary Impression: Anemia Qualified Codes: D64.9 - Anemia, unspecified Additional Impressions: GI bleed Qualified Codes: K92.2 - Gastrointestinal hemorrhage, unspecified Arterial occlusion Thrombocytopenia Condition: Stable Referrals: NO PRIMARY CARE PROVIDER (PCP) Education Educated: Patient Educated regarding: diagnosis, treatment Signature Scribe Signature: no scribe Attestation: no scribe BONILLA HAWKINS MD Nov 24, 2024 20:14
--- NOTE | 2024-11-24 20:55 | PROGRESS NOTE ---
Progress Note ID Providers to CC ~ Progress Note Progress Note: pt seen and examined-no complaints of rest pain-arterial doppler in progress- probable angio per Dr. Howard in am MEGHAN PACE MD Nov 24, 2024 20:55
[2024-11-24] MEDS ORDERED: potassium Cl 20 mEq SR tablet PO PRN ×2 (21:40)
[2024-11-24] MEDS ORDERED: mag hydrox/Alum hydrox/simeth 30ml oral suspension PO PRN (21:40)
[2024-11-24] MEDS ORDERED: magnesium Cl slow-release 64mg tablet PO PRN (21:40)
[2024-11-24] MEDS ORDERED: ondansetron/PF 4mg/2ml inj IV PRN (21:40)
[2024-11-24] MEDS ORDERED: HYDROcodone/acetaminophen 5mg/325mg tablet PO PRN (21:40)
[2024-11-24] MEDS ORDERED: magnesium sulf-water 4G/100mL 100 ML IV PRN (21:40)
[2024-11-24] MEDS ORDERED: magnesium sulf-water 2g/50mL 50 ML IV PRN (21:40)
[2024-11-24] MEDS ORDERED: potassium Cl 40MEQ/1/2NS 520ml 520 ML IV PRN (21:40)
[2024-11-24] MEDS ORDERED: HEPARIN DRIP DVT/PE -**PHARMACIST TO DOSE IV SCH (21:45)
[2024-11-24 21:56] VITALS: BP 110/55; PULSE 86; RESP 18; TEMP 97.6
[2024-11-24] MEDS ORDERED: MIRT-87 PO (22:15)
[2024-11-24] MEDS ORDERED: PANT40TA54 PO (22:15)
[2024-11-24] MEDS ORDERED: APIX2.5T PO (22:15)
[2024-11-24] MEDS: PERFLUTREN PROTEIN-A MICROSPHR (Optison) 0.22 MG/ML 3ML VIAL IV ONE (22:18)
--- NOTE | 2024-11-24 22:18 | VASCULAR REPORT ---
Left Lower Extremity Arterial Duplex Clinical History: Left lower extremity pain/discolored ischemic foot Comparison: None Technique: Duplex Doppler evaluation including color Doppler and spectral/pulsed waveform analysis of the lower extremity arteries was performed. Findings: LEFT: Peak systolic velocities are as follows: CERTIFIED CODING SPECIALIST 177 cm/s Deep femoral 97 cm/s SFA appears occluded without detectable velocity Popliteal appears occluded without detectable velocity Femoral tibial bypass graft appears occluded without detectable velocity throughout Anterior tibial 7 cm/s with monophasic waveform Peroneal 48 cm/s with monophasic waveform IMPRESSION: Near-complete occlusion throughout the left lower extremity arteries, including the femoral-tibial bypass graft. The common and deep femoral arteries are patent. The anterior tibial and peroneal arteries are patent with slow velocities and abnormal monophasic waveforms. The remaining imaged vessels do not have detectable velocities.
--- NOTE | 2024-11-24 22:27 | VASCULAR REPORT ---
Left lower extremity venous duplex Clinical History: Left lower extremity pain/swelling Comparison: None Technique: Duplex Doppler evaluation of the deep venous system of the left lower extremity from the common femoral vein to the popliteal vein including color Doppler and spectral/pulsed waveform analysis was performed. Findings: The common femoral vein demonstrates appropriate compressibility and waveform variability. There is compressibility/patency of the great saphenous vein at the proximal thigh. The femoral vein demonstrates occlusive thrombus distally. The deep femoral vein demonstrates appropriate compressibility and waveform variability. The popliteal vein demonstrates occlusive thrombus. The posterior tibial and peroneal veins demonstrate incomplete compressibility with preserved weak flow. Mild extensive subcutaneous edema. Impression: 1. Occlusive thrombus within the left distal femoral and popliteal veins. Nonocclusive thrombus in the calf veins. I communicated the above findings (as well as near complete arterial occlusion throughout the left lower extremity) by telephone with Dr. Retana at 10:21 p.m. [facility] on 11/24/2024, who communicated understanding.
--- NOTE | 2024-11-24 23:38 | HISTORY AND PHYSICAL-Residence ---
History & Physical Providers to CC Resident Creating Document: HORACE MCCURDY RES ~ History of Present Illness Reason for Admit\Complaint: Acute arterial thrombosis History of Present Illness This is a 69-year-old male patient with a past medical history of PAD, untreated lung cancer, COPD, hypertension, hyperlipidemia, was transferred from [facility] due to acute arterial left leg thrombosis. Patient reports severe left leg pain for the past three days associated with distal cyanosis. He has severe left foot pain when walking more than 5-10 feets. Patient also complains of severe shortness of breath with exertion, present for the past week. He reports daily hemoptysis for the past few months associated with 40 lb weight loss, weakness and malaise. He was recently diagnosed with lung cancer but has not seen an oncologist yet. Patient denies chest pain, productive cough or fever. He has poor appetite and nausea but denies epigastric pain, vomiting, hematemesis, hematochezia or melena. Pain is controlled at rest, no other symptoms reported. Allergies: Coded Allergies: No Known Allergies (Unverified , 07/29/18) Home Medications Home Medications Active Reported Mirtazapine 15 Mg Tablet 1 Tab PO HS Pantoprazole Sodium 40 Mg Tablet. 1 Tab PO DAILY Eliquis (Apixaban) 2.5 Mg Tablet 2.5 Tab PO BID Atorvastatin Calcium 40 Mg Tablet 1 Tab PO DAILY Carvedilol 3.125 Mg Tablet 1 Tab PO BID Past Medical History Past Medical History Untreated lung cancer Peripheral artery disease COPD Hyperlipidemia Past Surgical History Surgical History Comment Left femoral peroneal graft bypass [place] Jul [address] Waterman Inguinal hernioplasty Past Social History Smoking: Quit less than 1 year, Greater than 1 pack/day Alcohol Use: Sober Drug Use: None Lives with: Spouse Lives In: Home Occupation: retired ROS Constitutional: Reports: malaise, weakness Eyes: Reports: no symptoms reported ENT: Reports: no symptoms reported Respiratory: Reports: cough, orthopnea, shortness of breath, SOB with exertion, wheezing, hemoptysis Cardiovascular: Reports: diaphoresis Gastrointestinal: Reports: nausea, poor appetite, poor fluid intake Genitourinary: Reports: no symptoms reported Male Genitalia: Reports: no symptoms reported Neurological: Reports: no symptoms reported Musculoskeletal: Reports: no symptoms reported Integumentary: Reports: no symptoms reported Allergic/Immunologic: Reports: no symptoms reported Hematologic/Lymphatic: Reports: anemia, easy bruising Endocrine: Reports: unexplained weight loss Psychiatric: Reports: anxiety Exam Vitals: Vital Signs Date Time Temp Pulse Resp B/P (MAP) Pulse Ox O2 Delivery O2 Flow Rate FiO2 11/24/24 23:28 85 18 99/56 (70) 99 3.0 11/24/24 22:22 98.7 General: Awake , alert, and oriented x4, patient is mild respiratory distress HEENT: Atraumatic, normocephalic, EOMI, anicteric sclera ; pink conjunctiva Neck: Trachea midline. Supple, full range of motion, no JVD Cardiac: Regular rhythm, regular rate with 2/6 diastolic murmur at left lower sternal border Respiratory: Use of accessory muscles, diminished breath sounds bilaterally, tachypnea, faint expiratory wheezing , bibasilar rales, Gastrointestinal: Abdomen symmetric, non-distended, soft, non-tender, normal bowel sounds x4 quadrant, normoactive, no hepatosplenomegaly Extremities: Left leg pulses are not palpable. Right distal leg pulse is decreased. 2+ left lower extremity pitting edema with calf tenderness to palpation. Left leg is cold and pale, distal cyanosis noted. Purple bubble 3.5x4.0cm in the middle foot. Neurological: Mental status exam: alert and consciousness, orientation, memory, speech - Cranial nerve test: Cranial nerves 2-12 intact - Motor system: Nutrition, Tone 3+, Power 5/5, no involuntary movements - Sensory system: Intact - Reflex testing: Biceps, triceps and knee reflexes 2+ - Cerebellar: Normal Skin: Warm and clammy Diagnostic Data Last Recorded Lab Results: 11/24/[id number]/[id number] Diagnostic Data: Laboratory Tests Test 11/24/24 18:52 Prothrombin Time 13.1 SECONDS (9.0-12.0) H INR International Normalized Ratio 1.3 INR Activated Partial Thromboplast Time 28 SECONDS (22-32) Coagulation Comments Advance Care Planning Advanced Care plannin - 30 Minutes (I have discussed advanced care directives. Patient requests full code status.) Additional Plan Assessment 69-year-old male patient transferred from [facility] due to severe left leg pain associated with distal cyanosis. He was admitted for further evaluation management. 1. 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 Acute deep venous thrombosis of the left leg Patient presents with acute progressive pain and cyanosis of the left foot, associated with intermittent claudication Arterial US: Near-complete occlusion throughout the left lower extremity arteries, including the femoral-tibial bypass graft. The common and deep femoral arteries are patent Vascular US: Occlusive thrombus within the left distal femoral and popliteal veins. Left leg CTA on 03/09/2023 showed: There is occlusion of the left superficial femoral artery extending to the level of the popliteal artery, tibioperoneal trunk and and left anterior tibial artery with reconstitution of flow within the left posterior tibial artery and left dorsalis pedis artery. Plan Patient was started on heparin drip, currently on hold in view of possible GI bleed Dr Waterman was consulted and following the case Possible angiogram by Dr Howard in the morning Plan to restart the anticoagulation if no further hemoglobin drop and hemodynamically stable 3. Elevated troponin - possible type 2 SD due to the following reasons 4. Acute hypoxemic respiratory failure due to below 5. Pulmonary embolism is the leading suspected etiology 6. Untreated lung cancer, waiting oncology referral Well's criteria 11 points, favored by untreated cancer, acute DVT, immobilization and hemoptysis Differential diagnosis includes COPD exacerbation, faint expiratory wheezing noted on physical examination Requiring 4 L/min of oxygen to maintain normoxemia Patient was recently diagnosed with lung cancer at [facility], pending oncology evaluation CXR: Pulmonary vascular congestion. Right basilar opacities, favor atelectasis/small pleural effusion. Pneumonia is unlikely given no productive cough or fever NSTEMI cannot be excluded, no chest pain reported. Pending futher troponins. Troponin 1122, pending curve WBC 5.8, procalcitonin 0.11 Plan Ordered V/Q scan in view of acute kidney injury Patient will require anticoagulation Requested medical records from [facility] Prescribed Lasix 40 mg IV daily Started on albuterol/ipratropium q.4 hours Started on methylprednisolone 62.5 mg b.i.d. Incentive spirometry Daily weight, strict I&O Pending BNP, further troponins and echocardiogram Start aspirin if stable hemoglobin, continue carvedilol 3.25mg b.i.d, continue atorvastatin, ACEi/ARB not started given soft BP Cardiology consult in the morning 7. Upper GI bleed possible Hb 7.3, MCV 83.5, RDW 17.8, Plt 36 (baseline Hb is 13 based on previous records) Patient denies hematemesis, hematochezia or melena Positive fecal occult blood test Patient is chronically anticoagulated with Eliquis 2.5 mg b.i.d. Transfused 1 unit of blood in the ER H&H q.6 hours Pantoprazole 40 mg IV b.i.d. GI consult in the morning 8. Thrombocytopenia, HIT cannot be entirely excluded Platelet 36 in view of recent admission at [facility] and possible heparin administration Thrombocytopenia associated with acute arterial thrombosis Medical records requested from [facility] to compare previous platelet We will hold any heparin products until HIT be excluded If HIT is confirmed argatroban would be the best choice given parenteral anticoagulant with very short half-life 9. Acute kidney injury, most likely due to venous tubular stasis Cr 1.78, BUN 51, BUN/Cr 28.7 Patient has evidence of pulmonary edema Started on Lasix 40 mg IV daily Monitor daily 10. Hyperlipidemia Ordered lipid panel Continue atorvastatin 40 mg daily Code Status: Full code DVT prophylaxis: On hold Analgesia/sedation: Morphine/[place] Line/tube: PIV GI prophylaxis: Pantoprazole Nutrition: NPO Prognosis: Guarded Physical therapy: Ordered Disposition: Admit to PCU/telemetry. Possible angiography tomorrow. Anticoagulation on hold. Resident MD attestation The above note has been reviewed and supervised by a senior resident PGY2/PGY3 Patient was seen, examined and discussed with the attending physician Attending Addendum Pt was seen and discussed with the team agree with assessment and plan as documented Date of Service: Nov 24, 2024 Billing Provider: JUNG SOLARES MD, LUCAS, RES Nov 24, 2024 23:37 JUNG SOLARES MD Nov 25, 2024 09:34
[2024-11-25] VITALS (19 sets, daily range): BP systolic 101–132; BP diastolic 51–74; PULSE 88–105; RESP 13–24; TEMP 97.2–98.3; O2SAT 94–100
[2024-11-25] MEDS ORDERED: morphine 4 MG/ML inj SYRINge IV PRN ×2 (00:25)
[2024-11-25 01:03] LABS: OCCULT BLOOD STOOL POSITIVE (Neg)
[2024-11-25 02:18] LABS: OSMOLALITY UA 370.0 MOSM/K (50-1400)
[2024-11-25 02:27] LABS: CREATININE,URINE RANDOM 36.0 MG/DL
[2024-11-25 02:30] LABS: LEUKOCYTE ESTERASE ,URINE NEGATIVE (Neg); NITRITES, URINE NEGATIVE (Neg); OCCULT BLOOD,URINE LARGE (Neg)
[2024-11-25 02:54] LABS: UA COLLECTION TYPE URINAL
[2024-11-25 02:57] LABS: SQUAMOUS EPITHELIAL CELL,UR NONE SEEN /LPF (FEW)
[2024-11-25] MEDS: ipratropium/albuterol 3ml nebule NEB SCH (03:24)
[2024-11-25 03:45] LABS: RED CELL DISTRIBUTION WIDTH 17.2 % (11.5-14.5)
[2024-11-25 03:46] LABS: MEAN PLATELET VOLUME 8.3 FL (7.4-10.4)
[2024-11-25 04:03] LABS: CHOL/HDL RATIO 3.7 (0.00-4.99); CREATININE 1.85 MG/DL (0.60-1.10); LDL CHOLESTEROL 47 MG/DL (50-100); PRO BRAIN NATRIURETIC PEPTIDE 4169 PG/ML (0-125); TOTAL CARBON DIOXIDE 23.3 MMOL/L (24-32); eCRCL 40 ML/MIN; eGFR 36 ML/MIN
[2024-11-25 04:31] LABS: UA EOSINOPHILS NO EOS /HPF
[2024-11-25] MEDS ORDERED: heparin 10,000 units/1 ML INJ IV ONE (06:25)
[2024-11-25] MEDS ORDERED: heparin 25,000 UNIT/250ml bag 250 ML IV PRN (06:25)
[2024-11-25] MEDS ORDERED: heparin 10,000 units/1 ML INJ IV PRN (06:25)
[2024-11-25] MEDS: K and/or MAG REPLACEMENT MC SCH (08:00)
[2024-11-25] MEDS: docusate sod 100mg capsule PO SCH (08:25)
--- NOTE | 2024-11-25 09:32 | CONSULTATION REPORT - RESIDENT ---
Consult History of Present Illness Allergies: Coded Allergies: No Known Allergies (Unverified , 07/29/18) Home Medications Home Medications Active Reported Mirtazapine 15 Mg Tablet 1 Tab PO HS Pantoprazole Sodium 40 Mg Tablet.dr 1 Tab PO DAILY Eliquis (Apixaban) 2.5 Mg Tablet 2.5 Tab PO BID Atorvastatin Calcium 40 Mg Tablet 1 Tab PO DAILY Carvedilol 3.125 Mg Tablet 1 Tab PO BID Exam Vitals: Vital Signs Date Time Temp Pulse Resp B/P (MAP) Pulse Ox O2 Delivery O2 Flow Rate FiO2 11/25/24 07:15 92 18 Nasal Cannula 3.0 11/25/24 07:07 98 32 11/25/24 02:00 97.3 132/74 (93) Diagnostic Data Last Recorded Lab Results: 11/25/24 0320 11/25/24 0320 Diagnostic Data: Laboratory Tests Test 11/24/24 18:52 Prothrombin Time 13.1 SECONDS (9.0-12.0) H INR International Normalized Ratio 1.3 INR Activated Partial Thromboplast Time 28 SECONDS (22-32) Coagulation Comments ROSINA HAY, RES Nov 25, 2024 09:32
--- NOTE | 2024-11-25 09:51 | RADIOLOGY REPORT ---
INDICATION: elevated bilirubin, GGT TECHNIQUE: Multiple real-time sonographic images were obtained of the right upper quadrant. COMPARISON: None FINDINGS: The liver demonstrates homogenous echotexture without focal mass lesions. The liver measures 14 cm. There is no intrahepatic or extrahepatic ductal dilatation. The common duct measures 3 mm. Gallstones and gallbladder sludge. The gallbladder wall measures 2 mm and is within normal limits. The right kidney measures 9.1 cm. The right kidney is normal in contour, size, and shape. The echogenicity is normal. There is no hydronephrosis. The pancreas is not well visualized due to overlying bowel gas. IMPRESSION: Gallstones and gallbladder sludge. No sonographic evidence of acute cholecystitis. Hepatic steatosis.
--- NOTE | 2024-11-25 12:30 | RADIOLOGY REPORT ---
NUCLEAR MEDICINE VENTILATION/PERFUSION LUNG SCAN. INDICATION: DVT, hypoxemia, high risk of PE COMPARISON: CT CT CHEST on DOS: 11/25/24, DI CHEST,SINGLE VIEW on DOS: 11/24/24, CHEST,SINGLE VIEW on DOS: 08/01/18, CHEST,SINGLE VIEW on DOS: 07/29/18 TECHNIQUE: Following intravenous demonstration of 4.9 millicuries of technetium 99m MAA, and inhalation of 38.3 mCi of Tc 99m DTPA scintigrams were obtained in multiple projections of the lungs. FINDINGS: There is normal uptake of radionuclide on both the ventilation and perfusion portions of the examination. No mismatched perfusion defects are demonstrated. Uptake is normally homogeneous. IMPRESSION: No mismatch perfusion defects are present. Low probability for PE.
--- NOTE | 2024-11-25 13:08 | RADIOLOGY REPORT ---
EXAM: CT CT CHEST INDICATION: hypoxemia, hemoptysis TECHNIQUE: Noncontrast axial images of the chest have been obtained along with coronal and sagittal reformatted images. All CT scans at this facility use dose modulation, iterative reconstruction, and/or weight based dosing when appropriate to reduce radiation dose to as low as reasonably achievable. COMPARISON: NM NM LUNGS on DOS: 11/25/24 FINDINGS: LOWER NECK: Unremarkable LYMPH NODES/MEDIASTINUM: Multiple subcentimeter indeterminate mediastinal lymph nodes. Subcentimeter mildly prominent bilateral axillary lymph nodes CARDIOVASCULAR: Normal cardiac size. Small pericardial effusion. No aneurysmal dilatation of the great vessels. No significant coronary artery calcifications. UPPER ABDOMEN: Grta-ei-fukaisgi Prominent bilateral adrenal gland thickening which may be seen in the setting of adrenal hyperplasia MUSCULOSKELETAL: Diffuse osseous metastatic disease with involvement of the ribs, sternum and visualized spine with multiple areas of mixed lucent and blastic lesions. Multilevel degenerative change of the visualized spine. CHEST WALL: Unremarkable. LUNG PARENCHYMA/PLEURAL SPACE: Significant medium to large right and small left pleural effusions. Inconspicuous possible miliary pattern of small 1-2 mm pulmonary nodules with peribronchovascular thickening along the right hilum. Spiculated nodule located along the anterior segment, right upper lobe measuring 1.2 x 1.1 cm. Small amount of layering secretions in the left proximal mainstem bronchus. Question distal narrowing of the right mainstem bronchus secondary to soft tissue mass along the right hilum. IMPRESSION: 1. Significant suspected mass of the right hilum with spiculation and peribronchovascular distribution of thickening. 2. 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 3. Spiculated nodule in the anterior segment, right upper lobe adjacent to the pleura. 4. Question malignant right medium to large and small left pleural effusions. 5. Diffuse metastatic disease. 6. Mildly prominent subcentimeter mediastinal and bilateral axillary lymph nodes.
--- NOTE | 2024-11-25 18:02 | PROGRESS NOTE ---
Progress Note ID Providers to CC ~ Progress Note Progress Note: PT SEEN-DISTAL FOREFOOT CYANOTIC-DR. MURILLO TO EVALUATE FOR ANGIO MEGHAN PACE MD Nov 25, 2024 18:02
--- NOTE | 2024-11-25 18:31 | CARDIOLOGY REPORT ---
APPROVED REPORT EXAM: Comprehensive 2D, Doppler, and color-flow Echocardiogram. Patient Location: 3[address] Blood Pressure: 132/74 mmHg Heart Rate: 91 bpm Rhythm: SINUS Indications PULMONARY EMBOLISM UNTREATED LUNG CANCER COPD HYPERTENSION HYPERLIPIDEMIA L. LEG ARTERIAL THROMBOSIS [employer] Supervisor: Lyndon Parra MD Previous echo: 08/09/23 [facility] (EF 47%, no AI, no , mild MR, mild TR) 2D Dimensions IVSd 1.0 (0.7-1.1cm) LVDd 5.3 cm PWd 1.0 (0.7-1.1cm) IVSs 1.4 (0.8-1.2cm) LVDs 3.4 (2.5-4.0cm) PWs 1.2 (0.8-1.2cm) LVOT Diameter 1.97 (1.8-2.4cm) LVEF(%) 65.7 (>50%) Ao Asc Diam. 3.48 cm FS (%) 36.5 % SV 89.0 ml CO 8.4 L/min M-Mode Dimensions Left Atrium(MM) 3.19 (2.5-4.0cm) Aortic Root 3.46 (2.2-3.7cm) Aortic Cusp Exc 2.06 (1.5-2.0cm) Aortic Valve AoV Peak Raheel. 430.2 cm/s AoV VTI 83.3 cm AO Peak GR. 74.0 mmHg AO Mean GR. 39 mmHg LVOT VTI 26.31 cm LVOT Peak Raheel. 151.3 cm/s NATHEN(VTI)/BSA 0.96 cm2/m2 NATHEN (VTI) 0.96 cm2 AV DI 0.32 % Mitral Valve MV E Velocity 61.8 cm/s MV Peak Gr. 3 mmHg MV DECEL TIME 188 ms MV A Velocity 95.4 cm/s MV PHT 36 ms E/A Ratio 0.6 MVA (PHT) 6.11 cm2 MV VMax 85.9 cm/s TDI Medial E' P. V 9.16 cm/s E/Medial E' 6.7 Tricuspid Valve TR P. Velocity 310 cm/s TR Peak Gr. 38 mmHg Pulmonary Vein S1 Velocity 79.0 cm/s D2 Velocity 56.7 cm/s PVa Velocity 38.5 cm/s PVa Duration 92 msec LEFT VENTRICLE Normal LV size and wall thickness. Overall systolic function is normal at the base, decreasing towards the apex. Apical hypokinesis to akinesis is present. LVEF appears to be 65% at the base, decreasing to about 35% at the apex. RIGHT VENTRICLE RV is normal size and function. ATRIA LA size appears normal. AORTIC VALVE Trileaflet AV appears significantly sclerotic but appears to open well. Increased transvalvular and ascending aorta turbulance. NATHEN: 0.99 cmsq; Pkv: 4.30 m/sec; Gradients: 74 / 40 mmHG. Moderate insufficiency. Significantly increased in systolic velocities and regurgitation severity since 08/09/23 exam at [facility], suggestive of thrombus on valve or vegetation. Recommend CARA if clinically indicated. MITRAL VALVE Mild MV annular calcification without stenosis. Trace regurgitation. TRICUSPID VALVE TV appears structurally normal with mild regurgitation. PULMONIC VALVE Normal PV without stenosis, physiologic insufficiency. GREAT VESSELS Aortic root is normal in size. Ascending aorta is normal in size. PERICARDIUM Trace anterior pericardial effusion vs. anterior epicardial fat pad. No hemodynamic compromise. Other Information Study Quality: Adequate Conclusion Normal LV size and wall thickness. Overall systolic function is normal at the base, decreasing towards the apex. Apical hypokinesis to akinesis is present. LVEF appears to be 65% at the base, decreasing to about 35% at the apex. RV is normal size and function. LA size appears normal. Trileaflet AV appears significantly sclerotic but appears to open well. Increased transvalvular and ascending aorta turbulance. NATHEN: 0.99 cmsq; Pkv: 4.30 m/sec; Gradients: 74 / 40 mmHG. Moderate insufficiency. Significantly increased in systolic velocities and regurgitation severity since 08/09/23 exam at [facility], suggestive of thrombus on valve or vegetation. Recommend CARA if clinically indicated. Mild MV annular calcification without stenosis. Trace regurgitation. TV appears structurally normal with mild regurgitation. Trace anterior pericardial effusion vs. anterior epicardial fat pad. No hemodynamic compromise.
--- NOTE | 2024-11-25 19:34 | PROGRESS NOTE- Residence ---
Progress Note - Resident Providers to CC Resident Creating Document: DAMIAN BROOKS, CYN ~ Central Line/PICC still needed: N\A Antibiotic Timeout Antibiotic Ordered?: No Subjective Patient was examined bedside. Maintain saturation with 2-3 L O2 through nasal cannula, does not seem to be in respiratory distress. He is confused, and able to answer all the questions correctly, or but oriented x4. Objective Vital Signs Date Time Temp Pulse Resp B/P (MAP) Pulse Ox O2 Delivery O2 Flow Rate FiO2 11/25/24 17:48 97.9 94 23 101/55 (70) 96 Room Air 11/25/24 15:00 2.0 11/25/24 14:38 32 Result Diagram: 11/25/24 0320 11/25/24 0320 Awake , alert, and oriented x4, patient is mild respiratory distress HEENT: Atraumatic, normocephalic, EOMI, anicteric sclera ; pink conjunctiva Neck: Trachea midline. Supple, full range of motion, no JVD Cardiac: Regular rhythm, regular rate with 2/6 diastolic murmur at left lower sternal border Respiratory: Use of accessory muscles, diminished breath sounds bilaterally, tachypnea, faint expiratory wheezing , bibasilar rales, Gastrointestinal: Abdomen symmetric, non-distended, soft, non-tender, normal bowel sounds x4 quadrant, normoactive, no hepatosplenomegaly Extremities: Left leg pulses are not palpable. Right distal leg pulse is decreased. 2+ left lower extremity pitting edema with calf tenderness to palpation. Left leg is cold and pale, distal cyanosis noted. Purple bubble 3.5x4.0cm in the middle foot. Neurological: Mental status exam: alert and consciousness, orientation, memory, speech - Cranial nerve test: Cranial nerves 2-12 intact - Motor system: Nutrition, Tone 3+, Power 5/5, no involuntary movements - Sensory system: Intact - Reflex testing: Biceps, triceps and knee reflexes 2+ - Cerebellar: Normal Skin: Warm and clammy Coagulation Studies Laboratory Tests Test 11/24/24 18:52 Prothrombin Time 13.1 SECONDS (9.0-12.0) H INR International Normalized Ratio 1.3 INR Activated Partial Thromboplast Time 28 SECONDS (22-32) Coagulation Comments Counseling Services Smoking & Tobacco Cessation: > 10 Minutes Advance Care Planning Advanced Care planning: N/A Assessment Assessment 69-year-old male patient newly diagnosed metastatic lung cancer transferred from [facility] due to severe left leg pain associated with distal cyanosis, diagnosed with bilateral peripheral arterial disease with left foot wet gangrene and DVT. Scheduled for peripheral angioplasty with Dr. Gilliam tomorrow morning. New vegetation found on echo, scheduled for CARA with Dr. Graham Parra tomorrow morning. Not on anticoagulants for elevated trop and DVT. Possible HIT, to withhold heparin. Plan Plan 1. 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 Acute deep venous thrombosis of the left leg Patient presents with acute progressive pain and cyanosis of the left foot, associated with intermittent claudication Arterial US: Near-complete occlusion throughout the left lower extremity arteries, including the femoral-tibial bypass graft. The common and deep femoral arteries are patent Vascular US: Occlusive thrombus within the left distal femoral and popliteal veins. Left leg CTA on 03/09/2023 showed: There is occlusion of the left superficial femoral artery extending to the level of the popliteal artery, tibioperoneal trunk and and left anterior tibial artery with reconstitution of flow within the left posterior tibial artery and left dorsalis pedis artery. Plan: No anticoagulation for DVT for today. Patient is scheduled for peripheral angioplasty with Dr. Howard tomorrow morning. NPO from 12:00 a.m. Possible heparin induced thrombocytosis [place] [address]. No heparin to be administered. Can start the patient on Eliquis 5 mg b.i.d. after the procedure tomorrow 3. Elevated troponin - possible NSTEMI 4. Acute hypoxemic respiratory failure due to pulmonary vascular congestion from acute heart failure 5. Pulmonary embolism ruled out 6. Newly diagnosed metastatic lung cancer with bilateral pleural effusion 7. Possible vegetation on aortic valve Well's criteria 11 points, favored by untreated cancer, acute DVT, immobilization and hemoptysis Differential diagnosis includes COPD exacerbation, faint expiratory wheezing noted on physical examination Requiring 4 L/min of oxygen to maintain normoxemia Patient was recently diagnosed with lung cancer at [facility], pending oncology evaluation CXR: Pulmonary vascular congestion. Right basilar opacities, favor atelectasis/small pleural effusion. Pneumonia is unlikely given no productive cough or fever Serial troponin in thousands WBC 5.8, procalcitonin 0.11, NT proBNP 4000 Echocardiogram shows apical hypokinesis to akinesis with LV ejection fraction to be 65% at base decreasing to 35% in the apex. Aortic valve significantly increased systolic velocity suggestive of thrombus on valve or vegetation Plan Not advisable to start heparin drip in view of elevated troponin due to HIT Can consider cardiac catheterization for NSTEMI in view of apical akinesis and elevated troponin Requested medical records from [facility] Prescribed Lasix 40 mg IV daily Started on albuterol/ipratropium q.4 hours Started on methylprednisolone 62.5 mg b.i.d. Incentive spirometry Daily weight, strict I&O continue carvedilol 3.25mg b.i.d, continue atorvastatin, ACEi/ARB not started given soft BP Plan for CARA tomorrow morning with Dr. Graham Parra -can consider diagnostic pleural tapping to determine transudative/exudative 8. Upper GI bleed possible Hb 7.3, MCV 83.5, RDW 17.8, Plt 36 (baseline Hb is 13 based on previous records) Patient denies hematemesis, hematochezia or melena Positive fecal occult blood test Patient is chronically anticoagulated with Eliquis 2.5 mg b.i.d. Transfused 1 unit of blood in the ER H&H q.6 hours Pantoprazole 40 mg IV b.i.d. Gastroenterology consultation once the patient is stable 9. Thrombocytopenia, HIT cannot be entirely excluded Platelet 36 in view of recent admission at [facility] and possible heparin administration Thrombocytopenia associated with acute arterial thrombosis Medical records requested from [facility] to compare previous platelet We will hold any heparin products until HIT be excluded If HIT is confirmed argatroban would be the best choice given parenteral anticoagulant with very short half-life 10. Acute kidney injury, most likely due to venous tubular stasis Cr 1.78, BUN 51, BUN/Cr 28.7 Patient has evidence of pulmonary edema Started on Lasix 40 mg IV daily Monitor daily 11. Hyperlipidemia Continue atorvastatin 40 mg daily Code Status: Full code DVT prophylaxis: On hold Analgesia/sedation: Morphine/[place] Line/tube: PIV GI prophylaxis: Pantoprazole Nutrition: NPO Prognosis: Guarded Physical therapy: Ordered Disposition: Admit to PCU/telemetry. Peripheral angioplasty and CARA tomorrow. Anticoagulation on hold. Damian Brooks Internal Medicine, PGY1 [facility] Date of Service: Nov 25, 2024 Billing Provider: BUBBA STEIN MD Common Visit Codes: [id number] INP/OBS CARE(HIGH) DAMIAN BROOKS, RES Nov 25, 2024 19:34 BUBBA STEIN MD Nov 26, 2024 07:00
[2024-11-25] MEDS: HYDROcodone/acetaminophen 10/325mg tab PO PRN (20:21)
[2024-11-26] VITALS (23 sets, daily range): BP systolic 92–117; BP diastolic 50–77; PULSE 56–110; RESP 13–25; TEMP 97.2–98.7; O2SAT 90–98
--- NOTE | 2024-11-26 05:24 | CONSULTATION ---
DATE OF CONSULTATION: 11/25/2024 DICTATING PHYSICIAN: Jeff Ayon MD REASON FOR CONSULTATION: Blood loss anemia and hemoccult-positive stool. The patient is a poor historian and much of the history is obtained from reviewing the chart and discussing with the primary care resident doctors. The patient apparently admitted with acute arterial thrombosis. HISTORY OF PRESENT ILLNESS: The patient has a complicated history including history of PAD, metastatic lung cancer, hyperlipidemia, and hypertension. He apparently was transferred from [facility] because of what appears like acute vascular insufficiency in the lower extremity, possibly with both venous thrombosis and arterial thrombosis. It was told to me that there is occlusive thrombus of the left distal femoral and popliteal veins with the ultrasound. The patient also has been on oral anticoagulants. He was recently diagnosed with metastatic lung cancer. He came in because of severe left foot pain which was the main complaint. He was apparently treated in [facility] in the recent past. He denies fever, cough, or obvious GI bleeding in the form of melena, hematochezia, or hematemesis. He takes the oral anticoagulant, but there is no significant history of other pain medications like excessive aspirin or nonsteroidal anti-inflammatories. He was given a unit of packed red blood cells in the Emergency Department with a hemoglobin of 7.3. PAST MEDICAL HISTORY: As above, which is metastatic lung cancer, which is not yet treated; peripheral arterial disease; COPD; hyperlipidemia; and hypertension. FAMILY HISTORY AND PERSONAL HISTORY: Noncontributory. REVIEW OF SYSTEMS: A 12-point review of systems is essentially same as the history of present illness. PHYSICAL EXAMINATION: On physical exam, he is alert and oriented, appears to be in no apparent distress. Vital signs normal. Neck is supple, no thyromegaly, no JVD, no significant lymphadenopathy. Oral cavity within normal limits. Heart and lung exam normal. Abdomen is soft, nontender, no masses, no organomegaly, bowel sounds are present. Extremities reveal tenderness with 2+ pedal edema. The left leg is cold and pale and cyanotic. LABORATORY DATA: Laboratory values were reviewed and as mentioned above he came in with a hemoglobin of 7.3, subsequently with 1 unit it has gone up to 9.2. He also has thrombocytopenia with platelet count of 36, subsequently with 32,000. Etiology is unclear, possibly secondary to heparin therapy. The chemistries showed elevated troponin and elevated BNP, which was quite impressive. Rest of the lab values are essentially unremarkable. IMAGING STUDIES: Imaging studies so far have shown an abdominal ultrasound, which shows normal gallbladder and normal liver. Vascular ultrasound did show occlusive thrombus in the left distal femoral and popliteal veins with nonocclusive thrombus in the calf veins. The arterial ultrasound showed near complete occlusion throughout the left lower extremity arteries including the femorotibial bypass graft. IMPRESSION: A 69-year-old gentleman with extensive thromboembolic phenomenon, currently also worked up for pulmonary embolism, metastatic lung disease. Incidentally, he also has a hemoccult-positive stool. The GI problem is needing to be addressed; however, he has no acute problems at this time. He is hemodynamically stable and there is no active bleeding. There is an expected increase in hemoglobin with 1 unit of packed red blood cells. At this time, I recommend no GI interventions pending management of the acute problem including acute vascular insufficiency of the lower extremity vascular system and address the GI problem at a later time. He is taking oral anticoagulants and with the hemoccult positivity, GI tract will need to be cleared at some point in time for safe continuation of the anticoagulation therapy. Since his other problems are more pressing to be addressed at this time, we will simply watch now, and whenever he is ready to be on chronic anticoagulation therapy, we will clear his GI tract. Discussed with the residents and if the clinical condition changes, we will revise the decision and, if necessary, interventions can be performed. Jeff Ayon MD TID: [id number] RECEIPT: [id number] PATEL/JD
[2024-11-26 07:28] LABS: MEAN PLATELET VOLUME 8.7 FL (7.4-10.4)
[2024-11-26 07:32] LABS: RED CELL DISTRIBUTION WIDTH 17.8 % (11.5-14.5)
[2024-11-26 07:50] LABS: CREATININE 2.08 MG/DL (0.60-1.10); TOTAL CARBON DIOXIDE 21.6 MMOL/L (24-32); eCRCL 36 ML/MIN; eGFR 32 ML/MIN
--- NOTE | 2024-11-26 10:16 | CONSULTATION ---
DATE OF CONSULTATION: 11/26/2024 DICTATING PHYSICIAN: BONILLA MURILLO DO REFERRING PHYSICIAN: Dr. Waterman. CHIEF COMPLAINT: Left foot pain. CLINICAL HISTORY: This 69-year-old man was transferred from [place] to [facility] for further management of left lower leg, foot pain, and swelling. There is a prior history of femoral peroneal bypass surgery in 2018, but the graft is said to have occluded approximately 3 years ago. The patient has recently developed swelling and discoloration of his toes. Ultrasonography after admission here demonstrates that he has got extensive thrombus throughout his left leg system up to the femoral vein. His medical history is extremely complex. The patient is a very poor historian but thinks he may have had some heart problem in the past. 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 He is currently denying any chest pains. Other medical problems include renal insufficiency, marked thrombocytopenia (platelet counts in the 30s) and he has recently been found to have lung cancer, which thus far has received no treatment since he has not yet seen an oncologist. PAST MEDICAL HISTORY: He has no known allergies. His other listed medical problems in addition to those noted above, include chronic obstructive lung disease and hyperlipidemia. His medicines at the time of admission were carvedilol, atorvastatin, Eliquis, pantoprazole, and mirtazapine. OTHER SURGERIES: Include an inguinal herniorrhaphy. SOCIAL HISTORY: He was a long-term smoker, but discontinued 1 pack per day approximately 1 year ago. He denies consumption of alcoholic beverages. REVIEW OF SYSTEMS: As listed in the initial history and physical is otherwise unremarkable. PHYSICAL EXAMINATION: VITAL SIGNS: Most recent vital signs were blood pressure of 105/55, pulse 56, temperature 97.5, respiratory rate 15. GENERAL: The patient is alert and seems reasonably appropriate but his historical recall is very poor. HEENT: Pupils reactive to light. Extraocular muscles intact. NECK: He has no jugular venous distention. CHEST: On examination of the chest, lung delgado were clear. He has tubular breath sounds. CARDIAC: He has a 2-3/6 systolic ejection murmur best heard at the right upper sternal border. No gallops or rubs. ABDOMEN: Active bowel sounds. No obvious hepatosplenomegaly. No masses. EXTREMITIES: Right leg reasonably healthy in appearance. Foot pulses not readily palpable. The left leg demonstrates old scarring along the medial aspect of the right lower leg. He has grade 4 edema of the foot with blue discoloration of his toes. DIAGNOSTIC DATA: EKG on admission demonstrated sinus rhythm with diffuse low amplitude T-waves. The echocardiogram as partially reported above also is (I think) falsely reporting aortic stenosis with high transvalvular velocities and gradients when at the same time short axis imaging of the valve indicates that the leaflets open almost completely normally. That echocardiogram also shows a linear finding running from the valve down to what looks like near a papillary muscle. It has the appearance of an anomalous cord but otherwise not readily identifiable. The patient had mild aortic regurgitation but no important mitral or tricuspid regurgitation. LABORATORY DATA: The hemoglobin 8.4, hematocrit 25.3, white cell count 8500, platelet count 34,000 with two prior platelet counts, both in the 30s. The white cell differential is somewhat low on lymphocytes, which were at 8.4% with a neutrophil count of 78.1. The admission laboratory demonstrated a creatinine of 1.78, a BUN of 51, glucose was 94, sodium 142, potassium 4.8, CO2 content 23, albumin 2.5. ASSESSMENT: This patient's left leg arterial status is severe but static and until recently not causing enough trouble to merit urgent intervention. He now has extensive thrombosis involving the left leg venous system and there clearly appears to be compromised to the toes on his foot. Except for the presence of his DVT and the possible benefit of reestablishing better arterial flow to the lower leg, it would seem most reasonable to be conservative in this patient's management. I will try and find old angios to see if there is a possibility of reopening his left superficial femoral artery. The most important finding would be a decent landing zone in his distal SFA or in the popliteal artery. RECOMMENDATIONS: The patient is scheduled to have a transesophageal echocardiogram at approximately noon today with the focus being the aortic valve and what I view as possible anomalous chord. Because this patient has lung cancer, it is further reason to be as conservative as possible and angiography needs to be as brief as possible given the fact that his renal function is not very good. Further decision-making this morning is going to be based on what old angios suggest as the possibility of opening his left SFA. BONILLA MURILLO DO TID: [id number] RECEIPT: [id number] BULMARO/LAKEISHA
[2024-11-26 11:07] LABS: MEAN PLATELET VOLUME 9.3 FL (7.4-10.4); RED CELL DISTRIBUTION WIDTH 18.0 % (11.5-14.5)
[2024-11-26] MEDS ORDERED: LIDOcaine 1% 30ml preserv. free vial ONE (13:50)
[2024-11-26] MEDS ORDERED: fentaNYL/PF 50MCG/1 ML 2ML syringe ONE (13:51)
[2024-11-26] MEDS ORDERED: heparin 1,000unit/ml 10ml vial 10 ML ONE (13:51)
[2024-11-26] MEDS ORDERED: midazolam 1 mg/ML 2ml injection ONE (13:51)
--- NOTE | 2024-11-26 17:33 | PROGRESS NOTE- Residence ---
Progress Note - Resident Providers to CC Resident Creating Document: DAMIAN BROOKS, CYN ~ Central Line/PICC still needed: N\A [place]-Non Protocol [place] Indications Met/Not Met: F/C Indications Not Met Antibiotic Timeout Antibiotic Ordered?: No Subjective Patient was examined bedside. Maintain saturation with 2-3 L O2 through nasal cannula, does not seem to be in respiratory distress. He is able to answer all the questions correctly, or but oriented x4. Objective Vital Signs Date Time Temp Pulse Resp B/P (MAP) Pulse Ox O2 Delivery O2 Flow Rate FiO2 11/26/24 16:08 92 18 Nasal Cannula 3.0 11/26/24 16:01 95 32 11/26/24 16:00 97.5 96/52 (67) Result Diagram: 11/26/24 0700 11/26/24 0700 Awake , alert, and oriented x4, patient is mild respiratory distress HEENT: Atraumatic, normocephalic, EOMI, anicteric sclera ; pink conjunctiva Neck: Trachea midline. Supple, full range of motion, no JVD Cardiac: Regular rhythm, regular rate with 2/6 diastolic murmur at left lower sternal border Respiratory: Use of accessory muscles, diminished breath sounds bilaterally, tachypnea, faint expiratory wheezing , bibasilar rales, Gastrointestinal: Abdomen symmetric, non-distended, soft, non-tender, normal bowel sounds x4 quadrant, normoactive, no hepatosplenomegaly Extremities: Left leg pulses are not palpable. Right distal leg pulse is decreased. 2+ left lower extremity pitting edema with calf tenderness to palpation. Left leg is cold and pale, distal cyanosis noted. With gangrene noted involving toes of the left feet. Neurological: Mental status exam: alert and consciousness, orientation, memory, speech - Cranial nerve test: Cranial nerves 2-12 intact - Motor system: Nutrition, Tone 3+, Power 5/5, no involuntary movements - Sensory system: Intact - Reflex testing: Biceps, triceps and knee reflexes 2+ - Cerebellar: Normal Skin: Warm and clammy Coagulation Studies Laboratory Tests Test 11/24/24 18:52 Prothrombin Time 13.1 SECONDS (9.0-12.0) H INR International Normalized Ratio 1.3 INR Activated Partial Thromboplast Time 28 SECONDS (22-32) Coagulation Comments Counseling Services Smoking & Tobacco Cessation: 3-10 Minutes Assessment Assessment 69-year-old male patient newly diagnosed metastatic lung cancer transferred from [facility] due to severe left leg pain associated with distal cyanosis, diagnosed with bilateral peripheral arterial disease with left foot wet gangrene and DVT. Scheduled for peripheral angioplasty with Dr. Gilliam tomorrow morning. New vegetation found on echo, scheduled for CARA with Dr. Graham Parra tomorrow morning. Not on anticoagulants for elevated trop and DVT. Possible HIT, to withhold heparin. Plan Plan 1. 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 Acute deep venous thrombosis of the left leg Patient presents with acute progressive pain and cyanosis of the left foot, associated with intermittent claudication Arterial US: Near-complete occlusion throughout the left lower extremity arteries, including the femoral-tibial bypass graft. The common and deep femoral arteries are patent Vascular US: Occlusive thrombus within the left distal femoral and popliteal veins. Left leg CTA on 03/09/2023 showed: There is occlusion of the left superficial femoral artery extending to the level of the popliteal artery, tibioperoneal trunk and and left anterior tibial artery with reconstitution of flow within the left posterior tibial artery and left dorsalis pedis artery. Plan: No anticoagulation for DVT for today. Patient is scheduled for peripheral angioplasty with Dr. Howard tomorrow morning. NPO from 12:00 a.m. Possible heparin induced thrombocytosis [place] [address]. No heparin to be administered. Can start the patient on Eliquis 5 mg b.i.d. after the procedure tomorrow 11/26/2024: Patient underwent peripheral angioplasty with Dr. Howard today Started the patient on Eliquis 5 mg b.i.d. 3. Elevated troponin with apical wall motion abnormality - possible NSTEMI 4. Acute hypoxemic respiratory failure due to pulmonary vascular congestion from acute heart failure 5. Bilateral pleural effusion most likely exudative. 6. Newly diagnosed metastatic lung cancer 7. 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, underwent biopsy, pathology report pending from [facility] CXR: Pulmonary vascular congestion. Right basilar opacities, favor atelectasis/small pleural effusion. Pneumonia is unlikely given no productive cough or fever Serial troponin in thousands WBC 5.8, procalcitonin 0.11, NT proBNP 4000 Echocardiogram shows apical hypokinesis to akinesis with LV ejection fraction to be 65% at base decreasing to 35% in the apex. 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 Prescribed Lasix 40 mg IV daily Started on albuterol/ipratropium q.4 hours Started on methylprednisolone 62.5 mg b.i.d. Incentive spirometry Daily weight, strict I&O continue carvedilol 3.25mg b.i.d, continue atorvastatin, ACEi/ARB not started given soft BP Plan for CARA tomorrow morning with Dr. Graham Parra -can consider diagnostic pleural tapping to determine transudative/exudative 8. Upper GI bleed possible Hb 7.3, MCV 83.5, RDW 17.8, Plt 36 (baseline Hb is 13 based on previous records) Patient denies hematemesis, hematochezia or melena Positive fecal occult blood test Patient is chronically anticoagulated with Eliquis 2.5 mg b.i.d. Transfused 1 unit of blood in the ER H&H q.6 hours Pantoprazole 40 mg IV b.i.d. Gastroenterology consultation once the patient is stable 9. Thrombocytopenia, HIT cannot be entirely excluded Platelet 36 in view of recent admission at [facility] and possible heparin administration Thrombocytopenia associated with acute arterial thrombosis Medical records requested from [facility] to compare previous platelet We will hold any heparin products until HIT be excluded If HIT is confirmed argatroban would be the best choice given parenteral anticoagulant with very short half-life 10. Acute kidney injury, most likely due to venous tubular stasis Cr 1.78, BUN 51, BUN/Cr 28.7 Patient has evidence of pulmonary edema Started on Lasix 40 mg IV daily Monitor daily 11. Hyperlipidemia Continue atorvastatin 40 mg daily Code Status: Full code DVT prophylaxis: Eliquis 5 mg b.i.d. Analgesia/sedation: Morphine/[place] Line/tube: PIV GI prophylaxis: Pantoprazole Nutrition: NPO Prognosis: Guarded Physical therapy: Ordered Disposition: Admit to PCU/telemetry. Damian Brooks Internal Medicine, PGY1 [facility] Date of Service: Nov 26, 2024 Billing Provider: BUBBA STEIN MD Common Visit Codes: [id number] INP/OBS CARE(HIGH) DAMIAN BROOKS, RES Nov 26, 2024 17:33 BUBBA STEIN MD Nov 27, 2024 07:12
[2024-11-26] MEDS: lactose-reduced food (Ensure Enlive) - 237ml bottle PO SCH (18:00)
[2024-11-26] MEDS: normal saline 1000ml 1,000 ML IV SCH (18:17)
[2024-11-26] MEDS: pantoprazole 40mg Tablet.DR PO SCH (21:23)
[2024-11-27] VITALS (16 sets, daily range): BP systolic 107–125; BP diastolic 62–72; PULSE 94–104; RESP 14–20; TEMP 96.7–97.9; O2SAT 91–99
--- NOTE | 2024-11-27 06:01 | CARDIOLOGY REPORT ---
DATE OF SERVICE: 11/26/2024 DICTATING PHYSICIAN: BONILLA MURILLO DO CARDIAC CATHETERIZATION REPORT DATE OF SERVICE: 11/26/2024 LATIN [employer]ANCE INSTRUCTOR STUDY NUMBER: [id number]. REFERRING PHYSICIAN: Residence service. CLINICAL HISTORY: This 69-year-old man was transferred to [facility] from [place] 2 days ago. He has developed a painful left foot with swelling and hemorrhagic demarcation of his toes. There is a prior history of femoral posterior tibial bypass in 2018, but according to his vascular surgeon, the graft has been occluded for approximately 3 years. The patient was not having a great deal of difficulty with claudication and certainly not rest pain until 1-2 weeks ago, when he developed lower extremity swelling to the point that it is now 4+ edema. A workup has revealed that he has a complete thrombotic occlusion of his venous system from the foot up to his femoral vein. Other important issues with this patient are the recent diagnosis of lung cancer, a vague prior history of coronary disease with clear-cut evidence of old anteroapical infarction on an echocardiogram and he is a very long-term cigarette smoker. PROCEDURES PERFORMED: 1. Right common femoral arterial access. 2. Placement of a crossover catheter (destination sheath) from right common femoral to left/contralateral femoral. 3. Femoral, popliteal and infrapopliteal arteriographic runoff. 4. Percutaneous arteriotomy closure (Perclose). 5. A 45-minute conscious sedation supervision. DESCRIPTION OF PROCEDURE: The patient was sedated with fentanyl and Versed. He was then prepared and draped in the usual manner. The right inguinal area was infiltrated with 1% lidocaine. Using a micropuncture set and Seldinger technique, a 7-Macanese sheath was placed in the common femoral vein, 3000 units of heparin were given. A 6-Macanese sheath was placed at the common iliac bifurcation with the tip directed into the left/contralateral side. A [employer] wire was then passed down through the iliacs and well into the femoral system. The BRIAN catheter and the 7-Macanese sheath were removed and a 45-cm Destination sheath was passed over the wire with the tip of the sheath placed in the left/contralateral common femoral artery. From this location, extensive angiography was performed of the area of the origin of the profunda femoris artery as well as the approximate location of previous location of a patent SFA. Additional angiography was performed by panning down to the knee and then further angiography of filling of the infrapopliteal vessels down to the ankle. Given the fact that this patient had very, very good filling of his infrapopliteal system, although through a lot of extensive collaterals, a decision was made to not do anything further to enhance arteriographic filling of the lower leg. Therefore, the Destination sheath was removed and the arterial puncture site was successfully closed. RESULTS: 1. The superficial femoral artery was occluded at its origin. 2. The profunda femoris artery was a very large well-developed system, which provided collaterals in the upper leg and what appeared to be even better filling of the vessels below the knee. There was no definite collateral filling of a distal SFA, but the patient had vigorous filling of a peroneal artery (by way of collaterals) and there also appeared to be very modest filling of a posterior tibial artery. RECOMMENDATION: Ongoing medical therapy. This patient does not need an arterial intervention. BONILLA MURILLO DO TID: [id number] RECEIPT: [id number] BULMARO/MINO RYAN
--- NOTE | 2024-11-27 06:09 | PROGRESS NOTE ---
Progress Note Cardiology Providers to CC ~ Subjective Subjective Asleep Spokw with last night and apprised of the angio findings and the issues of LV function and a lesion on the AoV. Objective Result Diagram: 11/26/24 0700 11/26/24 0700 Objective Cr up to 2.08 but pt. is nonoliguric Angio yesterday showed more than adequate arterial vascularity to the lower leg. no intervention needed. Steroids started yesterday in hopes of getting an increase in platelets Repeat echocardiogram shows a gobular-looking lesion on the aortic valve The valve is made stenotic by this lesion. No evidence of stenosis on an echo less than 1 yr. ago Coagulation Studies Laboratory Tests Test 11/24/24 18:52 Prothrombin Time 13.1 SECONDS (9.0-12.0) H INR International Normalized Ratio 1.3 INR Activated Partial Thromboplast Time 28 SECONDS (22-32) Coagulation Comments Problem\Assessment\Plan Additional Plan Needs to start Eliquis and prednisone Suggest holding pt. 2-3 days to see if platelets come up. If platelet ct. rises, need to add Plavix. When he goes home he will need transportation arrangements to be able to see his oncologists BONILLA MURILLO DO Nov 27, 2024 06:09
[2024-11-27 06:32] LABS: MEAN PLATELET VOLUME 8.7 FL (7.4-10.4); RED CELL DISTRIBUTION WIDTH 18.4 % (11.5-14.5)
[2024-11-27 06:49] LABS: CREATININE 2.07 MG/DL (0.60-1.10); TOTAL CARBON DIOXIDE 23.4 MMOL/L (24-32); eCRCL 36 ML/MIN; eGFR 32 ML/MIN
--- NOTE | 2024-11-27 06:56 | CARDIOLOGY REPORT ---
APPROVED REPORT EXAM: Limited 2D, Doppler, and color-flow Echocardiogram. Patient Location: CARDIAC LAST GREASER Heart Rate: 101 bpm Rhythm: SINUS TACHYCARDIA Indications RE-ASSESS AV FOR VEGETATION/THROMBUS BLOOD CULTURES NOT PERFORMED AT TIME OF THIS EXAM LUNG CA COPD HYPERTENSION HYPERLIPIDEMIA L LE ARTERIAL THROMBUS Edge Banding Machine Offbearer: Lyndon Parra MD / Nicole MURILLO, DO Previous echo:11/25/24 [facility] HD EF: 65%base/35%apex; nlLV SZ/TH; nlRV; nlLA; abnAV=thick, pkV: 430cm/sec; grad: 74 / 40mmHG, transv turb, ? thromb/veg; rec CARA Aortic Valve AoV Peak Raheel. 433.0 cm/s AoV VTI 93.0 cm AO Peak GR. 75.0 mmHg AO Mean GR. 44 mmHg LEFT VENTRICLE Normal LV size and wall thickness except for mid and distal septum and the apex which are thinned out and akinetic. . Overall systolic function is abnormal. LVEF estimated to be 40-45%. Overall LVEF is 40-45%. (best contractility at base) RIGHT VENTRICLE RV is normal size and function. ATRIA The left atrium size is normal. AORTIC VALVE Trileaflet AV appears moderately thickened (likely thrombosed vs vegetation vs neoplasm, see loop 29) with at least mild calcification with significant stenosis demonstrated by reduced excursion and increased transvalvular and ascending aorta turbulance. Pkv:4.33m/sec; Gradients: 75/ 44mmHG. Mild/moderate insufficiency. NATHEN not calculated due to limited exam. There is a globular lesion attached to the aortic side of the valve which restricting the orifice causin stenosis. Lung cancer metastasis? GRE[place] VESSELS The aortic root is normal in size. Ascending aorta is normal in size. PERICARDIUM Normal pericardium. Trivial effusion vs. anterior epicardial fat pad. Other Information Study Quality: Technically Difficult--pt supine on CCL table
[2024-11-27] MEDS: aspirin 81mg, enteric-coated 1 TAB TABLET.DR PO SCH (10:12)
--- NOTE | 2024-11-27 18:36 | PROGRESS NOTE- Residence ---
Progress Note - Resident Providers to CC Resident Creating Document: DAMIAN BROOKS, CYN ~ Central Line/PICC still needed: N\A [place]-Non Protocol [place] Indications Met/Not Met: F/C Indications Met Antibiotic Timeout Antibiotic Ordered?: No Subjective Patient was examined bedside. Maintain saturation with 2-3 L O2 through nasal cannula, does not seem to be in respiratory distress. He is able to answer all the questions correctly, and oriented x4. Objective Vital Signs Date Time Temp Pulse Resp B/P (MAP) Pulse Ox O2 Delivery O2 Flow Rate FiO2 11/27/24 15:27 98 16 Room Air 0.0 11/27/24 15:26 92 N/A 11/27/24 15:00 97.8 107/62 (77) Result Diagram: 11/27/24 0615 11/27/24 0615 Awake , alert, and oriented x4, patient is mild respiratory distress HEENT: Atraumatic, normocephalic, EOMI, anicteric sclera ; pink conjunctiva Neck: Trachea midline. Supple, full range of motion, no JVD Cardiac: Regular rhythm, regular rate with 2/6 diastolic murmur at left lower sternal border Respiratory: Use of accessory muscles, diminished breath sounds bilaterally, tachypnea, faint expiratory wheezing , bibasilar rales, Gastrointestinal: Abdomen symmetric, non-distended, soft, non-tender, normal bowel sounds x4 quadrant, normoactive, no hepatosplenomegaly Extremities: Left leg pulses are not palpable. Right distal leg pulse is decreased. 2+ left lower extremity pitting edema with calf tenderness to palpation. Left leg is cold and pale, distal cyanosis noted. With gangrene noted involving toes of the left feet. Neurological: Mental status exam: alert and consciousness, orientation, memory, speech - Cranial nerve test: Cranial nerves 2-12 intact - Motor system: Nutrition, Tone 3+, Power 5/5, no involuntary movements - Sensory system: Intact - Reflex testing: Biceps, triceps and knee reflexes 2+ - Cerebellar: Normal Skin: Warm and clammy Coagulation Studies Laboratory Tests Test 11/24/24 18:52 Prothrombin Time 13.1 SECONDS (9.0-12.0) H INR International Normalized Ratio 1.3 INR Activated Partial Thromboplast Time 28 SECONDS (22-32) Coagulation Comments Assessment Assessment 69-year-old male patient newly diagnosed metastatic lung cancer transferred from [facility] due to severe left leg pain associated with distal cyanosis, diagnosed with bilateral peripheral arterial disease with left foot wet gangrene and DVT. Scheduled for peripheral angioplasty with Dr. Gilliam tomorrow morning. New vegetation found on echo, scheduled for CARA with Dr. Graham Parra tomorrow morning. Not on anticoagulants for elevated trop and DVT. Possible HIT, to withhold heparin. Plan Plan 1. 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 Acute deep venous thrombosis of the left leg Patient presents with acute progressive pain and cyanosis of the left foot, associated with intermittent claudication Arterial US: Near-complete occlusion throughout the left lower extremity arteries, including the femoral-tibial bypass graft. The common and deep femoral arteries are patent Vascular US: Occlusive thrombus within the left distal femoral and popliteal veins. Left leg CTA on 03/09/2023 showed: There is occlusion of the left superficial femoral artery extending to the level of the popliteal artery, tibioperoneal trunk and and left anterior tibial artery with reconstitution of flow within the left posterior tibial artery and left dorsalis pedis artery. Plan: No anticoagulation for DVT for today. Patient is scheduled for peripheral angioplasty with Dr. Howard tomorrow morning. NPO from 12:00 a.m. Possible heparin induced thrombocytosis [place] [address]. No heparin to be administered. Can start the patient on Eliquis 5 mg b.i.d. after the procedure tomorrow 11/26/2024: Patient underwent peripheral angiogram with Dr. Howard today Started the patient on Eliquis 10 mg b.i.d. 11/27/2024: He is post peripheral angiogram. Not a candidate for angioplasty Started the patient on Eliquis 10 mg b.i.d. 3. Elevated troponin with apical wall motion abnormality - possible NSTEMI 4. Acute hypoxemic respiratory failure due to pulmonary vascular congestion from acute heart failure 5. Bilateral pleural effusion most likely exudative. 6. Newly diagnosed metastatic lung cancer 7. 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 Right basilar opacities, favor atelectasis/small pleural effusion. Pneumonia is unlikely given no productive cough or fever Serial troponin in thousands WBC 5.8, procalcitonin 0.11, NT proBNP 4000 Echocardiogram shows apical hypokinesis to akinesis with LV ejection fraction to be 40-45% with best contractility at base. gobular-looking lesion on the aortic valve The valve is made stenotic by this lesion. 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 to rule out ITP Incentive spirometry Daily weight, strict I&O continue carvedilol 3.25mg b.i.d, continue atorvastatin, ACEi/ARB not started given soft BP -can consider diagnostic pleural tapping to determine transudative/exudative -oncology appointment tomorrow 8. Upper GI bleed possible Hb 7.3, MCV 83.5, RDW 17.8, Plt 36 (baseline Hb is 13 based on previous records) Patient denies hematemesis, hematochezia or melena Positive fecal occult blood test Patient is chronically anticoagulated with Eliquis 2.5 mg b.i.d. Transfused 1 unit of blood in the ER H&H q.6 hours Pantoprazole 40 mg IV b.i.d. Gastroenterology consultation once the patient is stable 9. Thrombocytopenia, HIT cannot be entirely excluded Platelet counts holding around 35 thousands Thrombocytopenia associated with acute arterial thrombosis Medical records requested from [facility] to compare previous platelet We will hold any heparin products until HIT be excluded Patient is on Solu-Medrol 125 mg daily to rule out ITP 10. Acute kidney injury, most likely due to venous tubular stasis Cr 1.78, BUN 51, BUN/Cr 28.7 Patient has evidence of pulmonary edema Started on Lasix 40 mg IV daily Monitor daily 11/27/2024: Creatinine increased to 2.05 most likely due to peripheral angioplasty Continue monitor levels 11. Hyperlipidemia Continue atorvastatin 40 mg daily Code Status: Full code DVT prophylaxis: Eliquis 5 mg b.i.d. Analgesia/sedation: Morphine/[place] Line/tube: PIV GI prophylaxis: Pantoprazole Nutrition: NPO Prognosis: Guarded Physical therapy: Ordered Disposition: Admit to PCU/telemetry. Damian Brooks Internal Medicine, PGY1 [facility] Date of Service: Nov 27, 2024 Billing Provider: BUBBA STEIN MD Common Visit Codes: [id number] INP/OBS CARE(HIGH) DAMIAN BROOKS, RES Nov 27, 2024 18:36 BUBBA STEIN MD Nov 28, 2024 06:46
[2024-11-28] VITALS (19 sets, daily range): BP systolic 111–129; BP diastolic 60–67; PULSE 84–100; RESP 14–22; TEMP 97.4–97.8; O2SAT 91–99
[2024-11-28 06:11] LABS: CREATININE 2.08 MG/DL (0.60-1.10); TOTAL CARBON DIOXIDE 25.1 MMOL/L (24-32); eCRCL 36 ML/MIN; eGFR 32 ML/MIN
[2024-11-28 06:13] LABS: RED CELL DISTRIBUTION WIDTH 18.1 % (11.5-14.5)
[2024-11-28 06:15] LABS: MEAN PLATELET VOLUME 8.7 FL (7.4-10.4)
[2024-11-28] MEDS: magnesium hydroxide 30ml (MOM) UD suspension PO PRN (07:56)
--- NOTE | 2024-11-28 17:03 | PROGRESS NOTE- Residence ---
Progress Note - Resident Providers to CC Resident Creating Document: DAMIAN BROOKS, CYN ~ Central Line/PICC still needed: N\A [place]-Non Protocol [place] Indications Met/Not Met: F/C Indications Not Met Antibiotic Timeout Antibiotic Ordered?: No Subjective Patient was examined bedside. Maintain saturation with 2-3 L O2 through nasal cannula, does not seem to be in respiratory distress. He is able to answer all the questions correctly, and oriented x4. Objective Vital Signs Date Time Temp Pulse Resp B/P (MAP) Pulse Ox O2 Delivery O2 Flow Rate FiO2 11/28/24 14:43 95 17 Nasal Cannula 2.0 11/28/24 14:38 97 28 11/28/24 11:50 97.6 111/67 (82) Result Diagram: 11/28/24 0537 11/28/24 0537 Awake , alert, and oriented x4, patient is mild respiratory distress HEENT: Atraumatic, normocephalic, EOMI, anicteric sclera ; pink conjunctiva Neck: Trachea midline. Supple, full range of motion, no JVD Cardiac: Regular rhythm, regular rate with 2/6 diastolic murmur at left lower sternal border Respiratory: Use of accessory muscles, diminished breath sounds bilaterally, tachypnea, faint expiratory wheezing , bibasilar rales, Gastrointestinal: Abdomen symmetric, non-distended, soft, non-tender, normal bowel sounds x4 quadrant, normoactive, no hepatosplenomegaly Extremities: Left leg pulses are not palpable. Right distal leg pulse is decreased. 2+ left lower extremity pitting edema with calf tenderness to palpation. Left leg is cold and pale, distal cyanosis noted. With gangrene noted involving toes of the left feet. Neurological: Mental status exam: alert and consciousness, orientation, memory, speech - Cranial nerve test: Cranial nerves 2-12 intact - Motor system: Nutrition, Tone 3+, Power 5/5, no involuntary movements - Sensory system: Intact - Reflex testing: Biceps, triceps and knee reflexes 2+ - Cerebellar: Normal Skin: Warm and clammy Coagulation Studies Laboratory Tests Test 11/24/24 18:52 11/27/24 19:46 Prothrombin Time 13.1 SECONDS (9.0-12.0) H INR International Normalized Ratio 1.3 INR Activated Partial Thromboplast Time 28 SECONDS (22-32) Coagulation Comments Fibrinogen 197 MG/DL (177-424) Coagulation Clinical Comments Assessment Assessment 69-year-old male patient newly diagnosed metastatic lung cancer transferred from [facility] due to severe left leg pain associated with distal cyanosis, diagnosed with bilateral peripheral arterial disease with left foot wet gangrene and DVT. Scheduled for peripheral angioplasty with Dr. Gilliam tomorrow morning. New vegetation found on echo, scheduled for CARA with Dr. Graham Parra tomorrow morning. Not on anticoagulants for elevated trop and DVT. Possible HIT, to withhold heparin. Plan Plan 1. 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 Acute deep venous thrombosis of the left leg Patient presents with acute progressive pain and cyanosis of the left foot, associated with intermittent claudication Arterial US: Near-complete occlusion throughout the left lower extremity arteries, including the femoral-tibial bypass graft. The common and deep femoral arteries are patent Vascular US: Occlusive thrombus within the left distal femoral and popliteal veins. Left leg CTA on 03/09/2023 showed: There is occlusion of the left superficial femoral artery extending to the level of the popliteal artery, tibioperoneal trunk and and left anterior tibial artery with reconstitution of flow within the left posterior tibial artery and left dorsalis pedis artery. Plan: No anticoagulation for DVT for today. Patient is scheduled for peripheral angioplasty with Dr. Howard tomorrow morning. NPO from 12:00 a.m. Possible heparin induced thromb[place] [address]. No heparin to be administered. Can start the patient on Eliquis 5 mg b.i.d. after the procedure tomorrow 11/26/2024: Patient underwent peripheral angiogram with Dr. Howard today Started the patient on Eliquis 10 mg b.i.d. 11/28/2024: He is post peripheral angiogram. Not a candidate for angioplasty Started the patient on Eliquis 10 mg b.i.d. 3. Elevated troponin with apical wall motion abnormality - possible NSTEMI 4. Acute hypoxemic respiratory failure due to pulmonary vascular congestion from acute heart failure 5. Bilateral pleural effusion most likely exudative. 6. Newly diagnosed metastatic lung cancer 7. 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 Right basilar opacities, favor atelectasis/small pleural effusion. Pneumonia is unlikely given no productive cough or fever Serial troponin in thousands WBC 5.8, procalcitonin 0.11, NT proBNP 4000 Echocardiogram shows apical hypokinesis to akinesis with LV ejection fraction to be 40-45% with best contractility at base. gobular-looking lesion on the aortic valve The valve is made stenotic by this lesion. 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 to rule out ITP Incentive spirometry Daily weight, strict I&O continue carvedilol 3.25mg b.i.d, continue atorvastatin, ACEi/ARB not started given soft BP -can consider diagnostic pleural tapping to determine transudative/exudative -oncology appointment tomorrow 11/28/2024: Globular mass on the aortic valve causing stenosis like flow. Can consider CARA 8. Upper GI bleed possible Hb 7.3, MCV 83.5, RDW 17.8, Plt 36 (baseline Hb is 13 based on previous records) Patient denies hematemesis, hematochezia or melena Positive fecal occult blood test Patient is chronically anticoagulated with Eliquis 2.5 mg b.i.d. Transfused 1 unit of blood in the ER H&H q.6 hours Pantoprazole 40 mg IV b.i.d. Gastroenterology consultation once the patient is stable 9. Thrombocytopenia, HIT cannot be entirely excluded Platelet counts holding around 35 thousands Thrombocytopenia associated with acute arterial thrombosis Medical records requested from [facility] to compare previous platelet We will hold any heparin products until HIT be excluded Patient is on Solu-Medrol 125 mg daily to rule out ITP 11/28/2024: Platelets increased to 43. Continue Solu-Medrol 125 mg daily 10. Acute kidney injury, most likely due to venous tubular stasis Cr 1.78, BUN 51, BUN/Cr 28.7 Patient has evidence of pulmonary edema Started on Lasix 40 mg IV daily Monitor daily 11/28/2024: Creatinine increased to 2.05 most likely due to peripheral angioplasty Continue monitor levels 11. Hyperlipidemia Continue atorvastatin 40 mg daily Code Status: Full code DVT prophylaxis: Eliquis 5 mg b.i.d. Analgesia/sedation: Morphine/[place] Line/tube: PIV GI prophylaxis: Pantoprazole Nutrition: NPO Prognosis: Guarded Physical therapy: Ordered Disposition: Admit to PCU/telemetry. Damian Brooks Internal Medicine, PGY1 [facility] Date of Service: Nov 28, 2024 Billing Provider: BUBBA STEIN MD Common Visit Codes: 58467-LLK/OBS DISCH DAY >30min DAMIAN BROOKS, RES Nov 28, 2024 17:03 BUBBA STEIN MD Nov 29, 2024 07:23
--- NOTE | 2024-11-28 20:25 | PROGRESS NOTE ---
Progress Note ID Providers to CC ~ Progress Note Progress Note: pt seen and examined-foot unchanged/labs noted a/p 1/ LLE dvt-on anticoagulation-no need for surgical intervention MEGHAN PACE MD Nov 28, 2024 20:25
[2024-11-29] VITALS (9 sets, daily range): BP systolic 105–116; BP diastolic 51–65; PULSE 83–113; RESP 16–20; TEMP 97.3–97.5; O2SAT 90–96
[2024-11-29 07:22] LABS: RED CELL DISTRIBUTION WIDTH 17.9 % (11.5-14.5)
[2024-11-29 07:24] LABS: MEAN PLATELET VOLUME 8.7 FL (7.4-10.4)
[2024-11-29 08:04] LABS: CREATININE 1.92 MG/DL (0.60-1.10); TOTAL CARBON DIOXIDE 27.2 MMOL/L (24-32); eCRCL 39 ML/MIN; eGFR 35 ML/MIN
[2024-11-29] MEDS ORDERED: FURO-150 PO (12:27)
[2024-11-29] MEDS ORDERED: ASPI-1071 PO (12:27)
[2024-11-29] MEDS ORDERED: PRED10TA23 PO (12:27)
[2024-11-29] MEDS ORDERED: APIX5TAB3 PO (12:27)
--- NOTE | 2024-11-29 20:08 | DISCHARGE SUMMARY-Residence ---
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 Manoj Waterman, the surgeon Dr. Luna Ayon, the motel food service supervisor Dr. Vladimir Howard, the vascular surgeon Complications: None Condition on DC: Stable New Medications: Furosemide (Lasix) 20 Mg Tablet 40 MG PO DAILY for 30 Days, #60 TAB Prednisone (Prednisone) 10 Mg Tablet 0 PO DAILY for 42 Days, #130 TAB Take 8 tabs daily x7 days, then 4 tabs daily x7 days 3 tabs daily x7 days 2 tabs daily x7 days 1 tabs daily x7 days 1/2 tab daily x7 days then STOP Apixaban (Eliquis) 5 Mg Tablet 10 MG PO BID for 30 Days, #60 TAB Aspirin (Ecotrin*) 81 Mg Tablet.dr 1 TAB PO DAILY for 30 Days, #30 TAB.SR Continued Medications: Atorvastatin Calcium (Atorvastatin Calcium) 40 Mg Tablet 1 TAB PO DAILY Carvedilol (Carvedilol) 3.125 Mg Tablet 1 TAB PO BID Mirtazapine (Mirtazapine) 15 Mg Tablet 1 TAB PO HS Pantoprazole Sodium (Pantoprazole Sodium) 40 Mg Tablet.dr 1 TAB PO DAILY Discontinued Medications: Apixaban (Eliquis) 2.5 Mg Tablet 2.5 TAB PO BID Discharge Summary: History of present illness: This is a 69-year-old male patient with a past medical history of PAD, untreated lung cancer, COPD, hypertension, hyperlipidemia, was transferred from [facility] due to acute arterial left leg thrombosis. Patient reports severe left leg pain for the past three days associated with distal cyanosis. He has severe left foot pain when walking more than 5-10 feets. Patient also complains of severe shortness of breath with exertion, present for the past week. He reports daily hemoptysis for the past few months associated with 40 lb weight loss, weakness and malaise. He was recently diagnosed with lung cancer but has not seen an oncologist yet. Patient denies chest pain, productive cough or fever. He has poor appetite and nausea but denies epigastric pain, vomiting, hematemesis, hematochezia or melena. Pain is controlled at rest, no other symptoms reported. Course in the hospital: Patient presented with acute progressive pain and cyanosis of the left foot, associated with intermittent claudication. Arterial US showed Near-complete occlusion throughout the left lower extremity arteries, including the femoral- tibial bypass graft. Vascular US showed Occlusive thrombus within the left distal femoral and popliteal veins.Left leg CTA on 03/09/2023 showed: There is occlusion of the left superficial femoral artery extending to the level of the popliteal artery, tibioperoneal trunk and and left anterior tibial artery with reconstitution of flow within the left posterior tibial artery and left dorsalis pedis artery. Patient underwent peripheral angiogram with Dr. Howard on 11/26/2024 showed the superficial femoral artery was occluded at its origin. The profunda femoris artery was a very large well-developed system, which providedcollaterals in the upper leg and what appeared to be even better filling of the vessels below the knee. There was no definite collateral filling of a distal SFA, but the patient had vigorous filling of a peroneal artery (by way of collaterals) and there also appeared to be very modest filling of a posterior tibial artery. patient does not need an arterial intervention as Dr. Howard. Treated with Eliquis 10 mg b.i.d. CXR showed Pulmonary vascular congestion. Right basilar opacities, favor atelectasis/small pleural effusion.Elevated troponin with apical wall motion abnormality - possible NSTEMI. NT proBNP 4000 Echocardiogram shows apical hypokinesis to akinesis with LV ejection fraction to be 40-45% with best con tractility at base. gobular-looking lesion on the aortic valve The valve is made stenotic by this lesion. Aortic valve significantly increased systolic velocity suggestive of thrombus on valve or vegetation. Patient was recently diagnosed with lung cancer at [facility], underwent biopsy, pathology report pending from [facility]. 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 Treated with Lasix, albuterol/ipratropium, methylprednisolone, Incentive spirometry, carvedilol, atorvastatin,and ACEi/ARB not started given soft BP and recommended outpatient oncology. Thrombocytopenia: Thrombocytopenia associated with acute arterial thrombosis. We will hold any heparin products until HIT be excluded. Patient was treated with Solu-Medrol. Possible Upper GI bleed: Hb 7.3, MCV 83.5, RDW 17.8, Plt 36 . Patient denies hematemesis, hematochezia or melena. Positive fecal occult blood test. Patient was chronically anticoagulated with Eliquis 2.5 mg b.i.d..Transfused 1 unit of blood in the ER. Recommended outpatient GI follow up. Imaging: Chest x-ray: Pulmonary vascular congestion. Right basilar opacities, favor atelectasis/small pleural effusion. Arterial ultrasound: Near-complete occlusion throughout the left lower extremity arteries, including the femoral-tibial bypass graft. The common and deep femoral arteries are patent. The anterior tibial and peroneal arteries are patent with slow velocities and abnormal monophasic waveforms. The remaining imaged vessels do not have detectable velocities. Vascular ultrasound: Occlusive thrombus within the left distal femoral and popliteal veins. Nonocclusive thrombus in the calf veins. Abdominal ultrasound: Gallstones and gallbladder sludge. No sonographic evidence of acute cholecystitis. Hepatic steatosis. Echocardiogram: 11/25/24: Normal LV size and wall thickness. Overall systolic function is normal at the base, decreasing towards the apex. Apical hypokinesis to akinesis is present. LVEF appears to be 65% at the base, decreasing to about 35% at the apex. RV is normal size and function. LA size appears normal. Trileaflet AV appears significantly sclerotic but appears to open well. Increased transvalvular and ascending aorta turbulance. NATHEN: 0.99 cmsq; Pkv: 4.30 m/sec; Gradients: 74 / 40 mmHG. Moderate insufficiency. Significantly increased in systolic velocities and regurgitation severity since 08/09/23 exam at [facility], suggestive of thrombus on valve or vegetation. Recommend CARA if clinically indicated. Mild MV annular calcification without stenosis. Trace regurgitation. TV appears structurally normal with mild regurgitation. Trace anterior pericardial effusion vs. anterior epicardial fat pad. No hemodynamic compromise. 11/26/24: Previous echo:11/25/24 [facility] EF: 65%base/35%apex; nlLV SZ/TH; nlRV; nlLA; abnAV=thick, pkV: 430cm/sec; grad: 74 / 40mmHG, transv turb, ? thromb/veg; rec CARA Aortic Valve AoV Peak Raheel. 433.0 cm/s AoV VTI 93.0 cm AO Peak GR. 75.0 mmHg AO Mean GR. 44 mmHg LEFT VENTRICLE Normal LV size and wall thickness except for mid and distal septum and the apex which are thinned out and akinetic. . Overall systolic function is abnormal. L VEF estimated to be 40-45%. Overall LVEF is 40-45%. (best contractility at base) RIGHT VENTRICLE RV is normal size and function. ATRIA The left atrium size is normal. AORTIC VALVE Trileaflet AV appears moderately thickened (likely thrombosed vs vegetation vs neoplasm, see loop 29) with at least mild calcification with significant stenosis demonstrated by reduced excursion and increased transvalvular and ascending aorta turbulance. Pkv:4.33m/sec; Gradients: 75/ 44mmHG. Mild/moderate insufficiency. NATHEN not calculated due to limited exam. There is a globular lesion attached to the aortic side of the valve which restricting the orifice causin stenosis. Lung cancer metastasis? [place] The aortic root is normal in size. Ascending aorta is normal in size. PERICARDIUM Normal pericardium. Trivial effusion vs. anterior epicardial fat pad. Lung scan NM: No mismatch perfusion defects are present. Low probability for PE. Chest CT: 1. Significant suspected mass of the right hilum with spiculation and peribronchovascular distribution of thickening. 2. 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 3. Spiculated nodule in the anterior segment, right upper lobe adjacent to the pleura. 4. Question malignant right medium to large and small left pleural effusions. 5. Diffuse metastatic disease. 6. Mildly prominent subcentimeter mediastinal and bilateral axillary lymph nodes. Vital Signs Date Time Temp Pulse Resp B/P (MAP) Pulse Ox O2 Delivery O2 Flow Rate FiO2 11/29/24 12:26 90 18 Room Air 0.0 11/29/24 12:21 90 21 10/11/25 10:00 97.3 116/65 (82) Laboratory Tests Test 11/28/24 05:37 11/29/24 07:03 White Blood Count 8.1 X10'3 7.4 X10'3 Red Blood Count 3.04 X10'6 2.82 X10'6 Hemoglobin 8.6 g/dl 7.9 g/dl Hematocrit 25.5 % 23.2 % Mean Corpuscular Volume 83.6 FL 82.4 FL Mean Corpuscular Hemoglobin 28.1 PG 28.2 PG Mean Corpuscular Hemoglobin Concent 33.6 g/dL 34.2 g/dL Red Cell Distribution Width 18.1 % 17.9 % Platelet Count 43 X10'3 46 X10'3 Mean Platelet Volume 8.7 FL 8.7 FL Hematology Comments Sodium Level 143 MMOL/L 141 MMOL/L Potassium Level 4.5 MMOL/L 5.1 MMOL/L Chloride Level 108 MMOL/L 105 MMOL/L Carbon Dioxide Level 25.1 MMOL/L 27.2 MMOL/L Anion Gap 10 9 Blood Urea Nitrogen 75 MG/DL 74 MG/DL Creatinine 2.08 MG/DL 1.92 MG/DL Estimated GFR/1.73 m2 32 ML/MIN 35 ML/MIN BUN/Creatinine Ratio 36.1 38.5 Glucose Level 148 MG/DL 147 MG/DL Calcium Level 8.6 MG/DL 8.1 MG/DL Magnesium Level 2.1 MG/DL Albumin 2.5 G/DL 2.5 G/DL Chemistry Comments Physical exam at discharge: Awake , alert, and oriented x4, patient is mild respiratory distress HEENT: Atraumatic, normocephalic, EOMI, anicteric sclera ; pink conjunctiva Neck: Trachea midline. Supple, full range of motion, no JVD Cardiac: Regular rhythm, regular rate with 2/6 diastolic murmur at left lower sternal border Respiratory: Use of accessory muscles, diminished breath sounds bilaterally, tachypnea, faint expiratory wheezing , bibasilar rales, Gastrointestinal: Abdomen symmetric, non-distended, soft, non-tender, normal bowel sounds x4 quadrant, normoactive, no hepatosplenomegaly Extremities: Left leg pulses are not palpable. Right distal leg pulse is decreased. 2+ left lower extremity pitting edema with calf tenderness to palpation. Left leg is cold and pale, distal cyanosis noted. With gangrene noted involving toes of the left feet. Neurological: Mental status exam: alert and consciousness, orientation, memory, speech - Cranial nerve test: Cranial nerves 2-12 intact - Motor system: Nutrition, Tone 3+, Power 5/5, no involuntary movements - Sensory system: Intact - Reflex testing: Biceps, triceps and knee reflexes 2+ - Cerebellar: Normal Skin: Warm and clammy Discharge instructions: Call and schedule your oncology appointment with [facility] OR [facility]: Address: [facility] [place] [address] Also, follow up with Dr. Pastrana (Deck Officer) in 2 weeks. *Problems/Diagnosis: (1) Thrombosis of left lower extremity (2) Deep vein thrombosis of left lower extremity (3) Atherosclerosis of left lower extremity with gangrene (4) NSTEMI (non-ST elevated myocardial infarction) (5) Acute hypoxemic respiratory failure (6) Pleural effusion, bilateral (7) Metastatic lung cancer (metastasis from lung to other site) (8) Upper GI bleed (9) Thrombocytopenia (10) Acute kidney injury (11) Hyperlipidemia Total Time Spent on D/C: > 30 Minutes Date of Service: Nov 29, 2024 Billing Provider: BUBBA STEIN MD Common Visit Codes: 06657-EDD/OBS DISCH DAY >30min MEREDITH KHAN, RES Nov 29, 2024 19:41 BUBBA STEIN MD Nov 30, 2024 07:41
== END 2024-11-29 13:25 | disposition home or self-care (01) | DRG 280 ==
LOC: ER 18:18 → ED HOLD 21:44 → EDBEDREQ 23:46 → PCU 3S 11-25 00:24 → ORTHO 4S 11-28 01:35
PROVIDERS: ADMIT Internal Medicine; ATTEND Internal Medicine
PROC: 30233N1 Transfusion of Nonautologous Red Blood Cells into Peripheral Vein, Percutaneous Approach (ICD-10-PCS; 2024-11-24)
PROC: CB121ZZ Planar Nuclear Medicine Imaging of Lungs and Bronchi using Technetium 99m (Tc-99m) (ICD-10-PCS; 2024-11-25)
PROC: BW241ZZ Computerized Tomography (CT Scan) of Chest and Abdomen using Low Osmolar Contrast (ICD-10-PCS; 2024-11-25)
PROC: B41G1ZZ Fluoroscopy of Left Lower Extremity Arteries using Low Osmolar Contrast (ICD-10-PCS; principal; 2024-11-26)
PROC: B41F1ZZ Fluoroscopy of Right Lower Extremity Arteries using Low Osmolar Contrast (ICD-10-PCS; 2024-11-26)
DX: I82.492 Acute embolism and thrombosis of other specified deep vein of left lower extremity (principal); J96.01 Acute respiratory failure with hypoxia; I21.4 Non-ST elevation (NSTEMI) myocardial infarction; N17.0 Acute kidney failure with tubular necrosis; K92.2 Gastrointestinal hemorrhage, unspecified; C34.90 Malignant neoplasm of unspecified part of unspecified bronchus or lung; I73.9 Peripheral vascular disease, unspecified; I10 Essential (primary) hypertension; D69.6 Thrombocytopenia, unspecified; E78.5 Hyperlipidemia, unspecified; J44.9 Chronic obstructive pulmonary disease, unspecified; Z79.01 Long term (current) use of anticoagulants; Z79.899 Other long term (current) drug therapy; Z87.891 Personal history of nicotine dependence
CPT/HCPCS: 36246; 36247; 36415; 36430; 71045; 71250; 75710; 76700; 78582; 80048; 80061; 80076; 81001; 82272; 82570; 82977; 83605; 83735; 83880; 83935; 84133; 84145; 84300; 84484; 85025; 85027; 85384; 85610; 85730; 86885; 86900; 86901; 86920; 87040; 87081; 87207; 93005; 93306; 93308; 93926; 93971; 94640; 94760; 96365; 97116; 97162; 99152; 99153; 99291; A4615; A4620; A6250; A6258; A9539; A9540; C1760; C1769; C1894; G0378; J1644; J1938; J2003; J2250; J2470; J2919; J3010; J7030; J7040; P9016; Q9967